=== PATIENT | male | born 1960 | race Caucasian/White ===

== ENCOUNTER 2016-10-01 15:05 | Emergency (ER) | payer OTHER ==
[~2016-10-01] VITALS: Ht 172.7 cm; Wt 72.6 kg
[~2016-10-01 15:05] MED LIST: FOLI1TAB16 PO; LEVE500T9 PO; NICO1PAT23 TD; PANT40TA4 PO; THIA100T74 PO
[2016-10-01 15:43] VITALS: BP 138/82
[2016-10-01] MEDS ORDERED: ACETAMINOPHEN ES 500 MG TABLET PO ONE (16:00)
[2016-10-01] MEDS ORDERED: ACETAMINOPHEN ES 500 MG TABLET ONE (16:04)
== END 2016-10-01 18:20 | disposition home or self-care (01) ==
LOC: ER 15:11
DX: M25.552 Pain in left hip (principal); I10 Essential (primary) hypertension; F10.10 Alcohol abuse, uncomplicated; F17.200 Nicotine dependence, unspecified, uncomplicated; Z59.0 Homelessness; W18.30XA Fall on same level, unspecified, initial encounter; Y93.89 Activity, other specified; Y92.89 Other specified places as the place of occurrence of the external cause; Y99.8 Other external cause status
CPT/HCPCS: 73503; 73552; 99284; A4606; Z7610; 73510-TC; 73550-TC

== ENCOUNTER 2016-12-24 17:20 | Emergency (ER) | payer OTHER ==
[~2016-12-24] VITALS: Ht 182.9 cm; Wt 63.5 kg
[2016-12-24 17:56] LABS: BASOPHILS % (AUTO) 0.5 % (0.0-2.0); EOSINOPHILS # (AUTO) 0.1 /CMM (0.0-0.7); EOSINOPHILS % (AUTO) 0.8 % (0.0-6.0); HEMATOCRIT 40 % (39-51); LYMPHOCYTES # (AUTO) 3.3 /CMM (0.8-4.8); LYMPHOCYTES % (AUTO) 40.7 % (20.0-44.0); MEAN CORPUSCULAR HEMOGLOBIN 32 PG (26.0-33.0); MEAN CORPUSCULAR HGB CONC 32 g/dl (31.0-36.0); MEAN CORPUSCULAR VOLUME 99 fL (80-96); MONOCYTES # (AUTO) 0.6 /CMM (0.1-1.30); NEUTROPHILS # (AUTO) 4.1 /CMM (1.8-8.9); PLATELET COUNT (AUTO) 286 /CMM (150-450); RED BLOOD CELL COUNT(AUTO) 4.07 MIL/uL (4.5-6.0); WHITE BLOOD COUNT (AUTO) 8.1 K/uL (4.3-11.0)
[2016-12-24 18:08] LABS: CALCIUM, SERUM 8.2 mg/dL (8.5-10.1); CARBON DIOXIDE 29 mmol/L (21-32); CHLORIDE 109 mmol/L (98-107); CREATININE 0.6 mg/dL (0.6-1.3); GLUCOSE 77 mg/dL (74-106); POTASSIUM 3.3 mmol/L (3.5-5.1); SODIUM SERUM 144 mmol/L (136-145); UREA NITROGEN, BLOOD 4 mg/dL (7-18)
[2016-12-24 18:24] LABS: ACETAMINOPHEN < 2 ug/ml (10-30); ALANINE AMINOTRANSFERASE 17 U/L (12-78); ALBUMIN 2.9 g/dL (3.4-5.0); ALCOHOL, BLOOD 306 mg/dL (0-0); ALKALINE PHOSPHATASE 154 U/L (46-116); ASPARTATE AMINOTRANSFERASE 23 U/L (15-37); BILIRUBIN,DIRECT 0.1 mg/dL (0.0-0.2); BILIRUBIN,TOTAL 0.3 mg/dL (0.2-1.0); SALICYLATE 3.5 mg/dL (2.8-20.0); TOTAL PROTEIN, SERUM 6.4 g/dL (6.4-8.2)
[2016-12-24] MEDS ORDERED: POTASSIUM CHLORIDE 20 MEQ TAB.PRT.SR PO ONE (20:00)
--- NOTE | 2016-12-24 21:20 | NUR ---
PT OK TO DISCHARGE PER CONSTANTIN INDUSTRIAL CHEMISTRY TEACHER. Patient discharged to home in stable condition. Pt refused ACI. Patient is awake and alert to self, day, and place. pt ambulatory with a steady gait
[2016-12-25 01:06] VITALS: BP 124/65
== END 2016-12-24 21:25 | disposition home or self-care (01) ==
LOC: ER 17:23
DX: G40.909 Epilepsy, unspecified, not intractable, without status epilepticus (principal); F10.129 Alcohol abuse with intoxication, unspecified; F17.200 Nicotine dependence, unspecified, uncomplicated; I10 Essential (primary) hypertension; Z59.0 Homelessness
CPT/HCPCS: 36415; 80048-TC; 80076-TC; 80185-TC; 85025-TC; A4606; G0480; G6039-TC; Z7610

== ENCOUNTER 2017-01-28 12:41 | Emergency (ER) | payer OTHER ==
[~2017-01-28] VITALS: Ht 177.8 cm; Wt 72.6 kg
--- NOTE | 2017-01-28 12:46 | NUR ---
[id number] [employer]: ETOH INTOXICATED. AMBULATORY WITH STEADY GAIT ON ARRIVAL. DEPRESSION. GOWNED PT . AWAITING MD ORDER.
--- NOTE | 2017-01-28 13:50 | NUR ---
DR BELCHER AT BEDSIDE FOR EVAL
[2017-01-28 14:01] LABS: BASOPHILS % (AUTO) 0.7 % (0.0-2.0); EOSINOPHILS # (AUTO) 0.1 /CMM (0.0-0.7); EOSINOPHILS % (AUTO) 2.5 % (0.0-6.0); HEMATOCRIT 42 % (39-51); LYMPHOCYTES # (AUTO) 2.8 /CMM (0.8-4.8); LYMPHOCYTES % (AUTO) 52.3 % (20.0-44.0); MEAN CORPUSCULAR HEMOGLOBIN 34 PG (26.0-33.0); MEAN CORPUSCULAR HGB CONC 33 g/dl (31.0-36.0); MEAN CORPUSCULAR VOLUME 102 fL (80-96); MONOCYTES # (AUTO) 0.4 /CMM (0.1-1.30); MONOCYTES % (AUTO) 7.5 % (2.0-12.0); PLATELET COUNT (AUTO) 220 /CMM (150-450); RDW COEFFICIENT OF VARIATION 13.7 (11.5-15.0); RED BLOOD CELL COUNT(AUTO) 4.15 MIL/uL (4.5-6.0); WHITE BLOOD COUNT (AUTO) 5.3 K/uL (4.3-11.0)
--- NOTE | 2017-01-28 14:01 | NUR ---
URINE SAMPLE COLLECTED SENT TO LAB
--- NOTE | 2017-01-28 14:01 | NUR ---
BUS ESCORT AT BEDSIDE FOR BLOOD DRAW
[2017-01-28 14:13] LABS: APPEARANCE,URINE Clear (CLEAR); BILIRUBIN,URINE SMALL (NEGATIVE); BLOOD, URINE Negative Ery/uL (NEGATIVE); COLOR,URINE Yellow (YELLOW); KETONES,URINE Trace (NEGATIVE); LEUKOCYTE ESTERASE ,URINE Negative (NEGATIVE); NITRITE, URINE Negative (NEGATIVE); PH,URINE 5.5 (5.0-8.0); PROTEIN,URINE Trace mg/dl (NEGATIVE); UGLUCOSE Negative (NEGATIVE); UROBILINOGEN,URINE 0.2 EU/dL (0.2)
[2017-01-28 14:15] LABS: CALCIUM, SERUM 8.3 mg/dL (8.5-10.1); CREATININE 0.7 mg/dL (0.6-1.3); POTASSIUM 3.6 mmol/L (3.5-5.1)
[2017-01-28 14:22] LABS: ALBUMIN 3.4 g/dL (3.4-5.0); BILIRUBIN,DIRECT 0.1 mg/dL (0.0-0.2); BILIRUBIN,TOTAL 0.3 mg/dL (0.2-1.0); SALICYLATE 3.8 mg/dL (2.8-20.0); TOTAL PROTEIN, SERUM 6.6 g/dL (6.4-8.2)
[2017-01-28 14:25] LABS: BACTERIA,URINE Rare /HPF (None Seen); RBC,URINE 0-2 /HPF (0-2); SQUAMOUS EPITHELIAL CELL,UR Rare /HPF (None Seen); WBC,URINE 0-2 /HPF (0-3)
--- NOTE | 2017-01-28 14:43 | NUR ---
CALLED TRI MCKINNEY, FOR FREDRICK SUNG, LEFT MESSAGE ON VOICEMAIL
--- NOTE | 2017-01-28 14:47 | NUR ---
RECEIVED CALL BACK FROM LUCILA MCKINNEY 30 MIN
--- NOTE | 2017-01-28 15:45 | NUR ---
SAHARA THEODORE PSYCH X [employer] WIRING TECHNICIAN AT BEDSIDE FOR EVAL
--- NOTE | 2017-01-28 16:32 | NUR ---
fax number for [facility]: [phone], face sheet, call # [phone] [place]
--- NOTE | 2017-01-28 16:38 | NUR ---
FAXED FACESHEET AND LAB RESULTS TO [facility].
--- NOTE | 2017-01-28 17:34 | NUR ---
CALLED [facility] INTAKE TO FOLLOW UP ON PLACEMENT OF PT, THEY SAID TO FAX THE DOCTORS NOTE AND THEY WILL REVIEW IT
--- NOTE | 2017-01-28 18:23 | NUR ---
CALLED [facility] TO FOLLOW UP, SPOKE WITH ERICA IN INTAKE, SHE SAID HIS ALCOHOL LEVEL IS STILL HIGH AND THEY CAN ONLY ACCEPT IF IT IS BELOW 100, WILL FOLLOW UP AGAIN LATER
--- NOTE | 2017-01-28 18:44 | NUR ---
REFAXED PT RESULTS TO [facility],
[2017-01-28 18:46] VITALS: BP 113/85
--- NOTE | 2017-01-28 19:05 | NUR ---
PT ACCEPTED TO [facility], PLEASE GIVE REPORT TO NURSE AT [phone], ACCEPTED BY
--- NOTE | 2017-01-28 19:09 | NUR ---
CALLED [facility] FOR TRANSPORT TO [facility], ETA 1 HOUR
--- NOTE | 2017-01-28 19:12 | NUR ---
GAVE REPORT TO CLINT LEÓN AT [facility]. ACCEPTED PT UNDER DR MILLIGAN.
== END 2017-01-28 20:21 ==
LOC: ER 12:43
DX: F10.129 Alcohol abuse with intoxication, unspecified (principal); R45.851 Suicidal ideations; G40.909 Epilepsy, unspecified, not intractable, without status epilepticus; F17.200 Nicotine dependence, unspecified, uncomplicated; I10 Essential (primary) hypertension; Z59.0 Homelessness
CPT/HCPCS: 36415; 80048; 80076; 80305; 80329; 81001; 85025; 99285; A4606; G0480 ×3; Z7610; 81000-TC

== ENCOUNTER 2017-04-01 17:39 | Emergency (ER) | payer OTHER ==
[~2017-04-01] VITALS: Ht 182.9 cm; Wt 79.4 kg
--- NOTE | 2017-04-01 17:48 | NUR ---
ETOH INTOXICATED. AGGRESSIVE TOWARD FAMILY WHILE INTOXICATED. SI PLAN TO JUMP OFF BRIDGE
[2017-04-01 17:55] LABS: BASOPHILS # (AUTO) 0.1 /CMM (0.0-0.2); BASOPHILS % (AUTO) 0.9 % (0.0-2.0); EOSINOPHILS # (AUTO) 0.1 /CMM (0.0-0.7); EOSINOPHILS % (AUTO) 0.6 % (0.0-6.0); HEMATOCRIT 41 % (39-51); HEMOGLOBIN 13.5 g/dL (13.5-17.5); LYMPHOCYTES # (AUTO) 3.5 /CMM (0.8-4.8); LYMPHOCYTES % (AUTO) 37.8 % (20.0-44.0); MEAN CORPUSCULAR HEMOGLOBIN 35 PG (26.0-33.0); MEAN CORPUSCULAR HGB CONC 33 g/dl (31.0-36.0); MEAN CORPUSCULAR VOLUME 106 fL (80-96); MONOCYTES % (AUTO) 10.4 % (2.0-12.0); NEUTROPHILS # (AUTO) 4.5 /CMM (1.8-8.9); NEUTROPHILS % (AUTO) 50.3 % (43.0-81.0); PLATELET COUNT (AUTO) 211 /CMM (150-450); RDW COEFFICIENT OF VARIATION 13.5 (11.5-15.0); RED BLOOD CELL COUNT(AUTO) 3.86 MIL/uL (4.5-6.0); WHITE BLOOD COUNT (AUTO) 9.2 K/uL (4.3-11.0)
[2017-04-01 18:03] LABS: CALCIUM, SERUM 8.4 mg/dL (8.5-10.1); CREATININE 0.7 mg/dL (0.6-1.3)
--- NOTE | 2017-04-01 18:14 | NUR ---
PT TAKEN TO CT SCAN
--- NOTE | 2017-04-01 18:44 | NUR ---
URINE SAMPLE COLLECTED SENT TO LAB
[2017-04-01] MEDS ORDERED: QUET25TA PO (18:50)
[2017-04-01] MEDS ORDERED: PHEN100C4 PO (18:50)
[2017-04-01] MEDS ORDERED: LEVE250T2 PO (18:50)
[2017-04-01] MEDS ORDERED: FOLIC ACID 1 MG TABLET PO ONE (19:00)
[2017-04-01] MEDS ORDERED: THIAMINE HCL 100 MG TABLET PO ONE (19:00)
[2017-04-01] MEDS ORDERED: POTASSIUM CHLORIDE 20 MEQ TAB.PRT.SR PO ONE ×2 (19:00→19:08)
[2017-04-01] MEDS ORDERED: FOLIC ACID 1 MG TABLET ONE (19:08)
[2017-04-01] MEDS ORDERED: THIAMINE HCL 100 MG TABLET ONE (19:08)
--- NOTE | 2017-04-01 20:12 | NUR ---
PSYCH HEALTH AND WELLNESS SALES CONSULTANT AT BEDSIDE
[2017-04-01 22:17] VITALS: BP 133/87
--- NOTE | 2017-04-01 22:27 | NUR ---
GIVEN REPORT TO MARJAN AT [facility]. DR SALAZAR ADMITTING DX MAJOR DEPRESSION.
== END 2017-04-01 22:29 ==
LOC: ER 17:40
DX: F10.129 Alcohol abuse with intoxication, unspecified (principal); G40.909 Epilepsy, unspecified, not intractable, without status epilepticus; R41.82 Altered mental status, unspecified; R45.851 Suicidal ideations; Z59.0 Homelessness; F17.200 Nicotine dependence, unspecified, uncomplicated
CPT/HCPCS: 36415; 70450; 80048; 80185; 80305; 85025; 99285; A4606; G0480; Z7610

== ENCOUNTER 2017-04-17 18:50 | Emergency (ER) | payer OTHER ==
[~2017-04-17] VITALS: Ht 177.8 cm; Wt 83.9 kg
[~2017-04-17 18:50] MED LIST changes: -FOLI1TAB16 PO; +LEVE250T2 PO; -LEVE500T9 PO; -NICO1PAT23 TD; -PANT40TA4 PO; +PHEN100C4 PO; +QUET25TA PO; -THIA100T74 PO
--- NOTE | 2017-04-17 18:59 | NUR ---
PT BIBRA FROM THE STREETS TO ER BED 15. HERE FOR ETOH. FOUND IN A SIDEWALK. ADMITS TO ETOH.PT VERBALLY RESPONSIVE. STABLE VITALS. AWAITING MD SUNG.
--- NOTE | 2017-04-17 19:00 | NUR ---
PT TO RADIOLOGY FOR HEAD CT SCAN VIA [facility].
--- NOTE | 2017-04-17 19:15 | NUR ---
DR BOLAÑOS AT BEDSIDE FOR EVAL.
[2017-04-17] MEDS ORDERED: PHENYTOIN EXTENDED RELEASE 100 MG CAPSULE PO ONE ×2 (23:30→23:31)
--- NOTE | 2017-04-17 23:34 | NUR ---
PT IS NOW AWAKE. STATES HE HAS SEIZURE AND TAKES MEDICATION. DR FRIEND MADE AWARE. MEDICATED ORDERED.
[2017-04-18 01:16] VITALS: BP 117/81
--- NOTE | 2017-04-18 01:17 | NUR ---
Patient discharged to home in stable condition. Written and verbal after care instructions given. Patient verbalizes understanding of instruction. Pt ambulatory with a steady gait. VSS, NAD noted on DC. Denies complaint on DC.
== END 2017-04-18 01:18 | disposition home or self-care (01) ==
LOC: ER 18:51
DX: F10.129 Alcohol abuse with intoxication, unspecified (principal); R41.82 Altered mental status, unspecified; I10 Essential (primary) hypertension; F17.200 Nicotine dependence, unspecified, uncomplicated
CPT/HCPCS: 70450; 99284; A4606; Z7610

== ENCOUNTER 2018-03-03 14:14 | Emergency (ER) | payer OTHER ==
[~2018-03-03] VITALS: Ht 167.6 cm; Wt 69.5 kg
--- NOTE | 2018-03-03 14:16 | NUR ---
PT AMA FROM THE STREETS TO ER BED 06. PT IS AWAKE ADMITS TO BEEN DRINKING AND STATES HAD MULTIPLE SEIZURE SINCE HIS BAG CONTAINING HIS MEDS WAS STOLEN. PLACED ON SEIZURE PRECAUTION. VSS. AWAITING MD SUNG.
--- NOTE | 2018-03-03 15:44 | NUR ---
RAMON VIDEO GAME PROGRAMMER AT BEDSIDE FOR EVAL.
[2018-03-03] MEDS ORDERED: LORAZEPAM INJ 2 MG/ML VIAL IVP ONE (16:00)
[2018-03-03] MEDS ORDERED: IV NS 0.9% 1,000 ML BAG IV ONE (16:00)
--- NOTE | 2018-03-03 16:00 | NUR ---
IV LINE STARTED BLOOD DRAWN AND SENT TO LAB.
[2018-03-03 16:05] LABS: BASOPHILS % (AUTO) 0.9 % (0.0-2.0); HEMATOCRIT 42 % (39-51); HEMOGLOBIN 14.2 g/dL (13.5-17.5); LYMPHOCYTES # (AUTO) 1.9 /CMM (0.8-4.8); MEAN CORPUSCULAR HEMOGLOBIN 36 PG (26.0-33.0); MEAN CORPUSCULAR HGB CONC 34 g/dl (31.0-36.0); MEAN CORPUSCULAR VOLUME 107 fL (80-96); MONOCYTES # (AUTO) 0.4 /CMM (0.1-1.30); MONOCYTES % (AUTO) 8.6 % (2.0-12.0); NEUTROPHILS # (AUTO) 2.3 /CMM (1.8-8.9); NEUTROPHILS % (AUTO) 49.5 % (43.0-81.0); PLATELET COUNT (AUTO) 145 /CMM (150-450); RDW COEFFICIENT OF VARIATION 13.6 (11.5-15.0); RED BLOOD CELL COUNT(AUTO) 3.96 MIL/uL (4.5-6.0); WHITE BLOOD COUNT (AUTO) 4.6 K/uL (4.3-11.0)
[2018-03-03 16:15] LABS: CALCIUM, SERUM 8.4 mg/dL (8.5-10.1); CARBON DIOXIDE 29 mmol/L (21-32); CHLORIDE 105 mmol/L (98-107); CREATININE 0.7 mg/dL (0.6-1.3); GLUCOSE 100 mg/dL (74-106); POTASSIUM 3.7 mmol/L (3.5-5.1); SODIUM SERUM 140 mmol/L (136-145); UREA NITROGEN, BLOOD 5 mg/dL (7-18)
[2018-03-03 16:18] LABS: INR 0.93 (0.85-1.15)
[2018-03-03] MEDS ORDERED: LORAZEPAM INJ 2 MG/ML VIAL ONE (16:22)
[2018-03-03 16:23] LABS: ALANINE AMINOTRANSFERASE 97 U/L (12-78); ALBUMIN 3.3 g/dL (3.4-5.0); ALCOHOL, BLOOD 335 mg/dL (0-0); ALKALINE PHOSPHATASE 125 U/L (46-116); ASPARTATE AMINOTRANSFERASE 176 U/L (15-37); BILIRUBIN,DIRECT 0.3 mg/dL (0.0-0.2); BILIRUBIN,TOTAL 0.7 mg/dL (0.2-1.0); TOTAL PROTEIN, SERUM 6.7 g/dL (6.4-8.2)
[2018-03-03 17:01] LABS: PHENYTOIN (DILANTIN) < 0.5 ug/ml (10.0-20.0)
[2018-03-03] MEDS ORDERED: PHENYTOIN SODIUM IV 1,000 MG in IV NS 0.9% 100 ML IV ONE (17:30)
--- NOTE | 2018-03-03 21:07 | NUR ---
PT AWAKE. AAOX3. SATES READY TO GO HOME. PROVIDED W/ BUS TOKEN. IVHL D/C'D. D/C HOME IN STABLE CONDITION.
[2018-03-03 21:11] VITALS: BP 125/77
== END 2018-03-03 21:11 | disposition home or self-care (01) ==
LOC: ER 14:15
DX: S40.811A Abrasion of right upper arm, initial encounter (principal); S40.812A Abrasion of left upper arm, initial encounter; F10.129 Alcohol abuse with intoxication, unspecified; G40.909 Epilepsy, unspecified, not intractable, without status epilepticus; R74.0 Nonspecific elevation of levels of transaminase and lactic acid dehydrogenase [LDH]; I10 Essential (primary) hypertension; F17.200 Nicotine dependence, unspecified, uncomplicated; Z59.0 Homelessness; Z76.0 Encounter for issue of repeat prescription; Y90.8 Blood alcohol level of 240 mg/100 ml or more; W22.8XXA Striking against or struck by other objects, initial encounter; Y93.89 Activity, other specified; Y92.89 Other specified places as the place of occurrence of the external cause; Y99.8 Other external cause status
CPT/HCPCS: 36415; 80048; 80076; 80185; 85025; 85730; 96365; 96375; 99284; A4606; G0480; J1165; J2060; J7030; J7040; Z7610

== ENCOUNTER 2019-02-04 17:35 | Emergency (ER) | payer MEDICAID, OTHER ==
[~2019-02-04] VITALS: Ht 172.7 cm; Wt 68.0 kg
--- NOTE | 2019-02-04 18:37 | NUR ---
PT REC'D TO ER ETOH LABS DRAWN SEN TO LAB UA SENT TO LAB PT EATTING AWAITING EVALUATION BY ER PROVIDER.
--- NOTE | 2019-02-04 19:08 | NUR ---
PT SITTING UP EATING DINNER
--- NOTE | 2019-02-04 21:22 | NUR ---
Patient discharged to home in stable condition. Written and verbal after care instructions given. Patient verbalizes understanding of instruction. Pt ambulatory with a steady gait
[2019-02-04 21:24] VITALS: BP 123/85
== END 2019-02-04 21:25 | disposition home or self-care (01) ==
LOC: ER 17:40
DX: F10.229 Alcohol dependence with intoxication, unspecified (principal); G40.909 Epilepsy, unspecified, not intractable, without status epilepticus; I10 Essential (primary) hypertension; F19.10 Other psychoactive substance abuse, uncomplicated; F17.200 Nicotine dependence, unspecified, uncomplicated; Y90.9 Presence of alcohol in blood, level not specified; Z59.0 Homelessness

== ENCOUNTER 2019-04-11 18:34 | Emergency (ER) | payer OTHER ==
[2019-04-11] MEDS ORDERED: LORAZEPAM INJ 2 MG/ML VIAL IVP ONE (19:00)
[2019-04-11] MEDS ORDERED: ONDANSETRON HCL/PF 4 MG/2 ML VIAL IVP ONE (19:00)
[2019-04-11] MEDS ORDERED: LEVETIRACETAM (500MG) 500 MG in IV NS 0.9% 100 ML IV ONE (19:00)
[2019-04-11] MEDS ORDERED: IV NS 0.9% 1,000 ML BAG IV ONE (19:00)
[2019-04-11] MEDS ORDERED: ONDANSETRON HCL/PF 4 MG/2 ML VIAL ONE (19:18)
[2019-04-11] MEDS ORDERED: LORAZEPAM INJ 2 MG/ML VIAL ONE (19:19)
[2019-04-11] MEDS ORDERED: LEVETIRACETAM (500MG) 500 MG/5 ML VIAL IV ONE (19:55)
[2019-04-12] MEDS ORDERED: LEVETIRACETAM (250 MG) 250 MG TABLET PO ONE (04:28)
[2019-04-12] MEDS ORDERED: PHENYTOIN EXTENDED RELEASE 100 MG CAPSULE PO ONE ×2 (04:28→04:30)
== END 2019-04-12 06:07 | disposition home or self-care (01) ==
DX: G40.909 Epilepsy, unspecified, not intractable, without status epilepticus (principal); F10.20 Alcohol dependence, uncomplicated; I10 Essential (primary) hypertension; F19.10 Other psychoactive substance abuse, uncomplicated; F17.200 Nicotine dependence, unspecified, uncomplicated; R74.8 Abnormal levels of other serum enzymes; Y90.8 Blood alcohol level of 240 mg/100 ml or more; Z59.0 Homelessness; Z91.19 Patient's noncompliance with other medical treatment and regimen
CPT/HCPCS: 36415; 70450; 72125; 80048; 80076; 80185; 80307; 85025; 85730; 93005; 96365; 96375; 99284; J1953; J2060; J2405; J7030 ×2

== ENCOUNTER 2019-04-15 20:17 | Emergency (ER) | payer OTHER ==
[~2019-04-15] VITALS: Ht 177.8 cm; Wt 61.2 kg
--- NOTE | 2019-04-15 20:27 | NUR ---
BIBA FOR C/O HEAD AND R SHOULDER PAIN. S/P UNWITHNESSED SEIZURE PER PT?? HEAVY ETOH SMELL. PT WAS PLACED ON A MONITOR . VS OBTAINED .WILL CONT TO MONITOR
[2019-04-15 21:05] LABS: BASOPHILS # (AUTO) 0.1 /CMM (0.0-0.2); BASOPHILS % (AUTO) 1.4 % (0.0-2.0); EOSINOPHILS % (AUTO) 0.8 % (0.0-6.0); HEMATOCRIT 41 % (39-51); HEMOGLOBIN 13.3 g/dL (13.5-17.5); LYMPHOCYTES # (AUTO) 3.3 /CMM (0.8-4.8); LYMPHOCYTES % (AUTO) 42.3 % (20.0-44.0); MEAN CORPUSCULAR HGB CONC 32 g/dl (31.0-36.0); MEAN CORPUSCULAR VOLUME 108 fL (80-96); MONOCYTES # (AUTO) 0.5 /CMM (0.1-1.30); MONOCYTES % (AUTO) 6.2 % (2.0-12.0); NEUTROPHILS # (AUTO) 3.8 /CMM (1.8-8.9); NEUTROPHILS % (AUTO) 49.3 % (43.0-81.0); PLATELET COUNT (AUTO) 473 /CMM (150-450); RED BLOOD CELL COUNT(AUTO) 3.82 MIL/uL (4.5-6.0); WHITE BLOOD COUNT (AUTO) 7.8 K/uL (4.3-11.0)
[2019-04-15 21:11] LABS: CALCIUM, SERUM 8.7 mg/dL (8.5-10.1); CREATININE 0.6 mg/dL (0.6-1.3); POTASSIUM 3.8 mmol/L (3.5-5.1)
[2019-04-15 21:18] LABS: ALBUMIN 2.9 g/dL (3.4-5.0); BILIRUBIN,DIRECT 0.2 mg/dL (0.0-0.2); BILIRUBIN,TOTAL 0.4 mg/dL (0.2-1.0); TOTAL PROTEIN, SERUM 6.7 g/dL (6.4-8.2)
[2019-04-15 21:28] LABS: PHENYTOIN (DILANTIN) 1.4 ug/ml (10.0-20.0)
[2019-04-15] MEDS ORDERED: phenytoin SODIUM IV 250 MG/5 ML VIAL IV ONE (21:55)
--- NOTE | 2019-04-15 21:55 | NUR ---
A 20G PIV LINE WAS STABLISHED ON LAC ON 1ST ATTEMPT W/ GOOD BLOOD DRAW.
[2019-04-15] MEDS ORDERED: PHENYTOIN SODIUM IV ONE (22:00)
[2019-04-15] MEDS ORDERED: NS 0.9% IV ONE (22:00)
[2019-04-15 22:41] LABS: MAGNESIUM 1.9 mg/dL (1.8-2.4)
[2019-04-15 22:44] LABS: EOSINOPHILS % (MANUAL) 1 % (0-4); LYMPHOCYTES % (MANUAL) 40 % (16-48); MONOCYTES % (MANUAL) 4 % (0-11.0); NEUTROPHILS % (MANUAL) 55 (42-76)
--- NOTE | 2019-04-16 01:39 | NUR ---
PT ACCEPTED TO [facility] MD: DR. MCCARTHY NUMBER FOR REPORT: [phone] BED ASSIGNMENT: [id number]
--- NOTE | 2019-04-16 01:45 | NUR ---
CALLED [facility] FOR TRANSPORTATION. ETA 0215. TRIP NUMBER [id number]
[2019-04-16 02:05] VITALS: BP 120/74
--- NOTE | 2019-04-16 02:05 | NUR ---
GAVE REPORT TO AJ LEÓN FROM [facility] FOR VANDANA
--- NOTE | 2019-04-16 02:08 | NUR ---
GAVE REPORT TO DONNIE Brizuela FOR TRANSPORTATION VANDANA
== END 2019-04-16 02:11 | disposition short-term general hospital (02) ==
LOC: ER 20:19
DX: S42.291A Other displaced fracture of upper end of right humerus, initial encounter for closed fracture (principal); S43.004A Unspecified dislocation of right shoulder joint, initial encounter; G40.909 Epilepsy, unspecified, not intractable, without status epilepticus; F10.129 Alcohol abuse with intoxication, unspecified; I10 Essential (primary) hypertension; F17.200 Nicotine dependence, unspecified, uncomplicated; Z59.0 Homelessness; Z79.899 Other long term (current) drug therapy; W19.XXXA Unspecified fall, initial encounter; Y93.89 Activity, other specified; Y92.89 Other specified places as the place of occurrence of the external cause; Y99.8 Other external cause status; Y90.9 Presence of alcohol in blood, level not specified
CPT/HCPCS: 36415; 71045; 73030; 73080; 80048; 80076; 80185; 80307; 83735; 84484; 85025; 93005; 96365; 99285; J1165 ×2; J7030; G0480

== ENCOUNTER 2019-04-27 19:22 | Emergency (ER) | payer OTHER ==
[~2019-04-27] VITALS: Ht 177.8 cm; Wt 72.6 kg
--- NOTE | 2019-04-27 19:45 | NUR ---
BIBRA. C/O "HX OF SEIZURES. HAVENT HAD MY MEDICINE FOR SEIZURES IN A WHILE AND IM NOT FEELING RIGHT" -SOB NOTED. VSS AT THIS TIME
[2019-04-27] MEDS ORDERED: IV NS 0.9% 500 ML BAG IV ONE (20:00)
--- NOTE | 2019-04-27 20:12 | NUR ---
BLOOD DRAWN AND GIVEN TO LAB
[2019-04-27] MEDS ORDERED: LEVETIRACETAM (500MG) 500 MG/5 ML VIAL IV ONE (20:19)
[2019-04-27] MEDS ORDERED: LEVETIRACETAM (500MG) 1,000 MG in IV NS 0.9% 100 ML IV SCH (20:30)
[2019-04-27] MEDS ORDERED: phenytoin SODIUM IV 1,000 MG in IV NS 0.9% 100 ML IV ONE (21:00)
[2019-04-27] MEDS ORDERED: phenytoin SODIUM IV 250 MG/5 ML VIAL IV ONE (21:49)
[2019-04-28 06:14] VITALS: BP 112/77
== END 2019-04-28 06:15 | disposition home or self-care (01) ==
LOC: ER 19:22
DX: S50.311A Abrasion of right elbow, initial encounter (principal); S80.211A Abrasion, right knee, initial encounter; T51.91XA Toxic effect of unspecified alcohol, accidental (unintentional), initial encounter; G40.909 Epilepsy, unspecified, not intractable, without status epilepticus; I10 Essential (primary) hypertension; F19.10 Other psychoactive substance abuse, uncomplicated; F10.20 Alcohol dependence, uncomplicated; F17.200 Nicotine dependence, unspecified, uncomplicated; Y90.8 Blood alcohol level of 240 mg/100 ml or more; Z59.0 Homelessness; Z91.14 Patient's other noncompliance with medication regimen; W18.39XA Other fall on same level, initial encounter; Y93.89 Activity, other specified; Y92.89 Other specified places as the place of occurrence of the external cause; Y99.8 Other external cause status
CPT/HCPCS: 36415; 70450; 71045; 73060; 73090; 80185; 80307; 96365; 96367; 99284; J1165 ×2; J1953 ×2; J7030 ×4; J7040; G0480

== ENCOUNTER 2019-05-06 19:37 | Emergency (ER) | payer OTHER ==
[~2019-05-06] VITALS: Ht 167.6 cm; Wt 68.0 kg
--- NOTE | 2019-05-06 19:45 | NUR ---
TO BED 13 BIB EMS C/O ETOH. PT FOUND IN THE NEAR BY PARK WHEN BY STANDER CALLED 911 DUE TO PT IS A INTOXICATED WITH UNSTEADY GAIT. PT DENIES FALL OR ANY TRAUMA. PT AAOX4 NO ACUTE DISTRESS NOTED, RESP EVEN AND UNLABORED. PT CONSTANTLY SAYING "I WANT SOME FOOD AND I JUST NEED TO SLEEP". PLACE PT ON CARDIAC MONITORING, CONTINUOUS POX. PENDING ER MD SUNG. CALL LIGHT WITHIN REACH.
--- NOTE | 2019-05-06 21:13 | NUR ---
PT ASLEEP, SHANAE CUTE DISTRESS NOTED, RESP EVEN AND UNALBORED. CALL LIGHT WITHIN REACH. WILL CONTINUE TO MONITOR PT.
--- NOTE | 2019-05-06 23:02 | NUR ---
PT ASLEEP, SHANAE CUTE DISTRESS NOTED, RESP EVEN AND UNALBORED. CALL LIGHT WITHIN REACH. WILL CONTINUE TO MONITOR PT.
--- NOTE | 2019-05-07 01:17 | NUR ---
PT AMBULATORY WITH STEADY GAIT NOTED.
--- NOTE | 2019-05-07 03:28 | NUR ---
PT AAOX4 NO ACUTE DISTRESS NOTED, RESP EVEN AND UNALBORED. CALL LIGHT WITHIN REACH
--- NOTE | 2019-05-07 05:37 | NUR ---
Melissa dubose in ED - 05/07/19 at 0539 by KO PT ASLEEP, SHANAE CUTE DISTRESS NOTED, RESP EVEN AND UNALBORED. CALL LIGHT WITHIN REACH. WILL CONTINUE TO MONITOR PT.
--- NOTE | 2019-05-07 05:50 | NUR ---
Pt ok to discahrge per dr Duncan. Patient given written and verbal discharge instructions. Patient verbalizes understanding of instructions. Patient is ambulatory with steady gait. Refuses offer of alf placement. Patient given list of available shelters in surrounding area.Patient is awake and alert to self, day, and place. pt ambulatory with a steady gait
[2019-05-07 05:51] VITALS: BP 125/71
== END 2019-05-07 05:51 | disposition home or self-care (01) ==
LOC: ER 19:41
DX: F10.229 Alcohol dependence with intoxication, unspecified (principal); R56.9 Unspecified convulsions; I10 Essential (primary) hypertension; F19.10 Other psychoactive substance abuse, uncomplicated; F17.200 Nicotine dependence, unspecified, uncomplicated; Y90.9 Presence of alcohol in blood, level not specified; Z59.0 Homelessness

== ENCOUNTER 2019-05-10 13:39 | Emergency (ER) | payer OTHER ==
[~2019-05-10] VITALS: Ht 165.1 cm; Wt 63.5 kg
--- NOTE | 2019-05-10 13:46 | NUR ---
"FLORIAN RA [facility] from [facility]thalmology clinic"(trying to have glasses fixed) and had sezure tonic/clonic. Given versed 5mg IM. BS 126 +ETOH abuse" pt alert awake, pt on monitor, vss, nad noted, pending md short
[2019-05-10] MEDS ORDERED: IV NS 0.9% 1,000 ML BAG IV ONE (14:00)
[2019-05-10 14:22] LABS: BASOPHILS # (AUTO) 0.1 /CMM (0.0-0.2); BASOPHILS % (AUTO) 0.5 % (0.0-2.0); EOSINOPHILS % (AUTO) 0.1 % (0.0-6.0); HEMATOCRIT 45 % (39-51); HEMOGLOBIN 14.8 g/dL (13.5-17.5); LYMPHOCYTES # (AUTO) 0.8 /CMM (0.8-4.8); LYMPHOCYTES % (AUTO) 8.7 % (20.0-44.0); MEAN CORPUSCULAR HGB CONC 33 g/dl (31.0-36.0); MEAN CORPUSCULAR VOLUME 105 fL (80-96); MONOCYTES # (AUTO) 0.8 /CMM (0.1-1.30); MONOCYTES % (AUTO) 8.2 % (2.0-12.0); NEUTROPHILS % (AUTO) 82.5 % (43.0-81.0); PLATELET COUNT (AUTO) 167 /CMM (150-450); RED BLOOD CELL COUNT(AUTO) 4.25 MIL/uL (4.5-6.0); WHITE BLOOD COUNT (AUTO) 9.7 K/uL (4.3-11.0)
[2019-05-10 14:30] LABS: CALCIUM, SERUM 9.1 mg/dL (8.5-10.1); CARBON DIOXIDE 23 mmol/L (21-32); CHLORIDE 102 mmol/L (98-107); CREATININE 1.1 mg/dL (0.6-1.3); GLUCOSE 163 mg/dL (74-106); POTASSIUM 3.7 mmol/L (3.5-5.1); SODIUM SERUM 142 mmol/L (136-145); UREA NITROGEN, BLOOD 5 mg/dL (7-18)
[2019-05-10 14:36] LABS: ALANINE AMINOTRANSFERASE 21 U/L (12-78); ALBUMIN 3.2 g/dL (3.4-5.0); ALCOHOL, BLOOD < 3 mg/dL (0-0); ALKALINE PHOSPHATASE 233 U/L (46-116); ASPARTATE AMINOTRANSFERASE 33 U/L (15-37); BILIRUBIN,DIRECT 0.3 mg/dL (0.0-0.2); BILIRUBIN,TOTAL 0.7 mg/dL (0.2-1.0); TOTAL PROTEIN, SERUM 7.1 g/dL (6.4-8.2)
[2019-05-10] MEDS ORDERED: THIAMINE HCL 100 MG TABLET PO ONE (15:00)
--- NOTE | 2019-05-10 15:30 | NUR ---
pt provided with meal tray.
[2019-05-10] MEDS ORDERED: THIAMINE HCL 100 MG TABLET ONE (15:37)
[2019-05-10] MEDS ORDERED: phenytoin SODIUM IV 1,000 MG in IV NS 0.9% 100 ML IV ONE (16:00)
[2019-05-10] MEDS ORDERED: LEVETIRACETAM (250 MG) 250 MG TABLET PO ONE ×2 (16:30→16:37)
[2019-05-10 18:55] VITALS: BP 132/74
--- NOTE | 2019-05-10 18:55 | NUR ---
Patient discharged to home in stable condition. Written and verbal after care instructions given. Patient verbalizes understanding of instruction. IV removed. Catheter intact and site benign. Pressure and 4x4 applied to site. No bleeding noted.
== END 2019-05-10 18:55 | disposition home or self-care (01) ==
LOC: ER 13:40
DX: R56.9 Unspecified convulsions (principal); F10.20 Alcohol dependence, uncomplicated; I10 Essential (primary) hypertension; F19.10 Other psychoactive substance abuse, uncomplicated; F17.200 Nicotine dependence, unspecified, uncomplicated; Y90.0 Blood alcohol level of less than 20 mg/100 ml; Z59.0 Homelessness
CPT/HCPCS: 36415; 80048; 80076; 80185; 80307; 85025; 96365; 99283; J1165; J7030 ×2; J7040; G0480

== ENCOUNTER 2019-06-23 18:40 | Emergency (ER) | payer OTHER ==
[~2019-06-23] VITALS: Ht 182.9 cm; Wt 70.8 kg
--- NOTE | 2019-06-23 19:20 | NUR ---
AMA FROM HOME TO ER BED 15. INTOXICATED, SMELLS OF ALCOHOL. NO RESP DISTRESS NOTED. PER REPORT, PT WAS CALLED IN BY HIS FATHER BECAUSE PT IS INTOXICATED. AT THE TIME OF ASSESSMENT, PT HAS NO MEDICAL COMPLAINT. MD AT BEDSIDE FOR EVAL. AWAITING ORDERS
[2019-06-23] MEDS ORDERED: PHENYTOIN EXTENDED RELEASE 100 MG CAPSULE PO ONE ×2 (20:00→21:16)
--- NOTE | 2019-06-23 22:30 | NUR ---
Patient discharged to home in stable condition. Written and verbal after care instructions given. Patient verbalizes understanding of instruction. Pt ambulatory with a steady gait. Pt urinated himself, offered clothing but pt refused. according to pt he will change when he gets home
[2019-06-24 00:19] VITALS: BP 149/95
== END 2019-06-23 22:30 | disposition home or self-care (01) ==
LOC: ER 18:43
DX: F10.129 Alcohol abuse with intoxication, unspecified (principal); G40.909 Epilepsy, unspecified, not intractable, without status epilepticus; I10 Essential (primary) hypertension; F17.200 Nicotine dependence, unspecified, uncomplicated; Z59.0 Homelessness; Z79.899 Other long term (current) drug therapy; Y90.9 Presence of alcohol in blood, level not specified

== ENCOUNTER 2019-06-25 19:17 | Emergency (ER) | payer OTHER ==
[~2019-06-25] VITALS: Ht 182.9 cm; Wt 70.8 kg
--- NOTE | 2019-06-25 19:30 | NUR ---
PT TO ER BB RA. PT ANSWERING QUESTIONS APPROPRIATELY BUT DOES ADMIT TO DRINKING ALCOHOL BIOFUELS PRODUCTION TECHNICIAN. NO IMMEDIATE SIGNS OF DISTRESS NOTED. PT VITAL SIGNS STABLE. NO SIGNS OF TRAUMA NOTED. PT TO ER BED, CHANGED INTO GOWN AND CONNECTED TO MONITOR. WILL CONT TO MONITOR PT.
[2019-06-25 20:37] LABS: BASOPHILS # (AUTO) 0.1 /CMM (0.0-0.2); BASOPHILS % (AUTO) 1.3 % (0.0-2.0); EOSINOPHILS % (AUTO) 0.6 % (0.0-6.0); HEMATOCRIT 47 % (39-51); HEMOGLOBIN 15.5 g/dL (13.5-17.5); LYMPHOCYTES # (AUTO) 2.7 /CMM (0.8-4.8); LYMPHOCYTES % (AUTO) 44.3 % (20.0-44.0); MEAN CORPUSCULAR HGB CONC 33 g/dl (31.0-36.0); MEAN CORPUSCULAR VOLUME 105 fL (80-96); MONOCYTES # (AUTO) 0.5 /CMM (0.1-1.30); MONOCYTES % (AUTO) 8.6 % (2.0-12.0); NEUTROPHILS # (AUTO) 2.7 /CMM (1.8-8.9); NEUTROPHILS % (AUTO) 45.2 % (43.0-81.0); PLATELET COUNT (AUTO) 189 /CMM (150-450); RED BLOOD CELL COUNT(AUTO) 4.42 MIL/uL (4.5-6.0); WHITE BLOOD COUNT (AUTO) 6.1 K/uL (4.3-11.0)
[2019-06-25 20:47] LABS: CREATININE 0.6 mg/dL (0.6-1.3); POTASSIUM 4.1 mmol/L (3.5-5.1)
[2019-06-25 20:54] LABS: PHENYTOIN (DILANTIN) 1.8 ug/ml (10.0-20.0)
[2019-06-25 20:55] LABS: ALBUMIN 3.2 g/dL (3.4-5.0); BILIRUBIN,TOTAL 0.3 mg/dL (0.2-1.0); TOTAL PROTEIN, SERUM 7.2 g/dL (6.4-8.2)
[2019-06-25] MEDS ORDERED: LEVETIRACETAM (500MG) 500 MG in IV NS 0.9% 100 ML IV SCH (21:30)
[2019-06-25] MEDS: IV NS 0.9% 500 ML BAG IV ONE ×2 (21:30→23:30)
[2019-06-25] MEDS ORDERED: PHENYTOIN SODIUM IV ONE (21:30)
[2019-06-25] MEDS ORDERED: NS 0.9% IV ONE (21:30)
[2019-06-25] MEDS ORDERED: LEVETIRACETAM (250 MG) 250 MG TABLET PO ONE ×2 (23:00→23:23)
[2019-06-25] MEDS ORDERED: PHENYTOIN EXTENDED RELEASE 100 MG CAPSULE PO ONE ×5 (23:00→23:31)
--- NOTE | 2019-06-25 23:40 | NUR ---
100MG DILANTIN WAS NOT IN THE ER PYXIS. MEDICATION OBTAINED BY THE NURSING PRODUCT GRADER.
--- NOTE | 2019-06-25 23:43 | NUR ---
PT REC'D MEDICATION ORDERED.
--- NOTE | 2019-06-26 02:21 | NUR ---
PT SLEEPIING IN [facility]. NO SIGNS OF DISTRESS NOTED. PT VITAL SIGNS STABLE. PT EASILY AROUSABLE. WILL CONT TO MONITOR PT.
--- NOTE | 2019-06-26 06:02 | NUR ---
Pt ok to discharge per Dr Duncan. Patient is awake and alert to self, day, and place. pt ambulatory with a steady gait. Patient discharged to home in stable condition. Written and verbal after care instructions given. Patient verbalizes understanding of instruction.
--- NOTE | 2019-06-26 06:05 | NUR ---
Pt refused to sign homeless waiver.
[2019-06-26 06:58] VITALS: BP 134/78
== END 2019-06-26 06:59 | disposition home or self-care (01) ==
LOC: ER 19:18
DX: F10.129 Alcohol abuse with intoxication, unspecified (principal); G40.909 Epilepsy, unspecified, not intractable, without status epilepticus; I10 Essential (primary) hypertension; F19.10 Other psychoactive substance abuse, uncomplicated; F17.200 Nicotine dependence, unspecified, uncomplicated; Y90.8 Blood alcohol level of 240 mg/100 ml or more; Z59.0 Homelessness; Z79.899 Other long term (current) drug therapy
CPT/HCPCS: 80053; 80177; 80185; 80307; 85025; 99284; J1165; J1953; J7030 ×2; J7040; 36415; G0480

== ENCOUNTER 2019-07-02 13:47 | Emergency (ER) | payer OTHER ==
[~2019-07-02] VITALS: Ht 182.9 cm; Wt 59.0 kg
--- NOTE | 2019-07-02 14:02 | NUR ---
patient [id number] from the street, "i had a pint of vodka", picked up by ems outside the library. Connected to the monitor and pulse ox. Breathing evenly and unlabored. Sitter at bedside for constant monitoring. Kept comfortable, will continue to monitor accordingly. Patient verbally responsive and able to make needs known.
--- NOTE | 2019-07-02 14:15 | NUR ---
WELDER GAS AUTOMATIC MOHSEN AT BEDSIDE
--- NOTE | 2019-07-02 14:30 | NUR ---
Social service consult requested by FAY Nguyen for ETOH. Pt. is a 59 year old male who was brought in by rescue from street where he was lying outside the library. EDSON met with the pt. bedside in ED. Pt. is alert and oriented x 4. Pt. appears disheveled. Pt admitted to drinking a pint of vodka. Pt. states he has been homeless for 4 years and is currently staying with friends at [address] [facility] in [place]. Pt. receives $1071 in SSI and SSDI per month. Pt has insight into his alcoholism but states, he is not ready to change at this time. Pt. stated, " it's me with the problem." SW expressed empathy to the pt by providing reflective listening. Pt. drinks a pint of vodka daily. Pt. was in an alcohol treatment program in [place] a year ago but did not like it. Pt. stated, the cliental were all young. SW informed pt.to call the [facility] Substance Abuse hotline (904) /824-0979 for linkage to an appropriate alcohol treatment program. Pt. takes Dilantin and Keppra for seizure disorder. Pt. has a psychiatric diagnosis of Depression and Anxiety. Pt. denies suicidal and homicidal ideations and visual/auditory hallucinations at this time. Pt. reports no recent seizures. Pt. stated, he will think about it and look into attending a program. Currently, pt does not seem to have the motivation to change his behavior. SW supported pt' s self-efficacy and encouraged pt. to attend a program. Pt. was provided with the following list of Alcohol programs: [facility], [address] [facility]. ; [facility] , [address] [facility] ; [facility], [place] and [facility] , [address] [facility]. Homeless patient waiver Form was placed in the chart for pt. to sign upon discharge. Pt. will require TAP card upon discharge.
--- NOTE | 2019-07-02 17:44 | NUR ---
patient in bed, resting and asleep, in no distress. Sitter at bedside.
[2019-07-02] MEDS ORDERED: ONDANSETRON 4 MG TAB.RAPDIS SL ONE (19:30)
[2019-07-02] MEDS ORDERED: ONDANSETRON 4 MG TAB.RAPDIS ONE (19:35)
--- NOTE | 2019-07-02 19:41 | NUR ---
ambulatory with a steady gait. DISCHARGE PAPERS GIVEN. TAP CARD PROVIDED.
[2019-07-02 19:54] VITALS: BP 121/81
== END 2019-07-02 19:54 | disposition home or self-care (01) ==
LOC: ER 13:49
DX: F10.129 Alcohol abuse with intoxication, unspecified (principal); G40.909 Epilepsy, unspecified, not intractable, without status epilepticus; I10 Essential (primary) hypertension; F19.10 Other psychoactive substance abuse, uncomplicated; F17.200 Nicotine dependence, unspecified, uncomplicated; Y90.9 Presence of alcohol in blood, level not specified; Z59.0 Homelessness; Z79.899 Other long term (current) drug therapy
CPT/HCPCS: 82962 ×2; 99283; Q0162

== ENCOUNTER 2019-08-19 16:54 | Emergency (ER) | payer OTHER ==
[~2019-08-19] VITALS: Ht 165.1 cm; Wt 61.2 kg
--- NOTE | 2019-08-19 17:06 | NUR ---
BIB RA [address] "[address] Intoxicated/Alcohol abuse. BS-158" PT AWAKE, ALERT, -SOB, NAD NOTED, PT ON MONITOR, VSS, PENDING MD SUNG
[2019-08-19] MEDS ORDERED: LEVETIRACETAM (250 MG) 250 MG TABLET PO ONE ×2 (17:30→18:06)
[2019-08-19 17:51] LABS: BASOPHILS # (AUTO) 0.2 /CMM (0.0-0.2); BASOPHILS % (AUTO) 1.8 % (0.0-2.0); EOSINOPHILS % (AUTO) 1.2 % (0.0-6.0); HEMATOCRIT 44 % (39-51); HEMOGLOBIN 14.7 g/dL (13.5-17.5); LYMPHOCYTES # (AUTO) 3.2 /CMM (0.8-4.8); LYMPHOCYTES % (AUTO) 33.6 % (20.0-44.0); MEAN CORPUSCULAR HGB CONC 33 g/dl (31.0-36.0); MEAN CORPUSCULAR VOLUME 106 fL (80-96); MONOCYTES # (AUTO) 0.7 /CMM (0.1-1.30); MONOCYTES % (AUTO) 7.6 % (2.0-12.0); NEUTROPHILS # (AUTO) 5.4 /CMM (1.8-8.9); NEUTROPHILS % (AUTO) 55.8 % (43.0-81.0); PLATELET COUNT (AUTO) 479 /CMM (150-450); RED BLOOD CELL COUNT(AUTO) 4.17 MIL/uL (4.5-6.0); WHITE BLOOD COUNT (AUTO) 9.7 K/uL (4.3-11.0)
[2019-08-19 18:14] LABS: CARBON DIOXIDE 31 mmol/L (21-32); CHLORIDE 109 mmol/L (98-107); CREATININE 0.8 mg/dL (0.6-1.3); GLUCOSE 81 mg/dL (74-106); POTASSIUM 5.2 mmol/L (3.5-5.1); SODIUM SERUM 149 mmol/L (136-145); UREA NITROGEN, BLOOD 8 mg/dL (7-18)
[2019-08-19 18:22] LABS: ALANINE AMINOTRANSFERASE 53 U/L (12-78); ALBUMIN 3.2 g/dL (3.4-5.0); ALCOHOL, BLOOD 377 mg/dL (0-0); ALKALINE PHOSPHATASE 136 U/L (46-116); ASPARTATE AMINOTRANSFERASE 71 U/L (15-37); BILIRUBIN,DIRECT 0.1 mg/dL (0.0-0.2); BILIRUBIN,TOTAL 0.4 mg/dL (0.2-1.0); SALICYLATE 2.2 mg/dL (2.8-20.0); TOTAL PROTEIN, SERUM 7.4 g/dL (6.4-8.2)
[2019-08-19 18:38] LABS: PHENYTOIN (DILANTIN) < 0.5 ug/ml (10.0-20.0)
[2019-08-19] MEDS ORDERED: IV NS 0.9% 1,000 ML BAG IV ONE (19:00)
[2019-08-19] MEDS ORDERED: SODIUM POLYSTYRENE SULFONATE 15 G/60 ML BOTTLE PO ONE (19:00)
[2019-08-19] MEDS ORDERED: phenytoin SODIUM IV 1,000 MG in IV NS 0.9% 100 ML IV ONE (19:30)
[2019-08-19 20:10] LABS: BASOPHILS % (MANUAL) 1 % (0.0-2.0); LYMPHOCYTES % (MANUAL) 23 % (16-48); MONOCYTES % (MANUAL) 8 % (0-11.0); NEUTROPHILS % (MANUAL) 64 (42-76); REACTIVE LYMPHOCYTES 4 % (0-0)
--- NOTE | 2019-08-19 20:25 | NUR ---
PT GIVEN URINAL, PT WAS UNABLE TO PROVIDE URINE SAMPLE AT THIS TIME
[2019-08-19] MEDS ORDERED: SODIUM POLYSTYRENE SULFONATE 15 G/60 ML BOTTLE ONE (20:29)
--- NOTE | 2019-08-19 21:00 | NUR ---
per dr soriano, she does not need urine at this time, pt etoh level above 300, when pt is more sober, pt can be safely d/c'd
[2019-08-19 22:40] LABS: CALCIUM, SERUM 7.8 mg/dL (8.5-10.1); CREATININE 0.7 mg/dL (0.6-1.3)
--- NOTE | 2019-08-20 01:09 | NUR ---
Patient is resting comfortably in bed with eyes closed. Easily aroused. VSS
--- NOTE | 2019-08-20 06:02 | NUR ---
RPatient is resting comfortably in bed with eyes closed. Easily aroused. VSS. SITTER AT BEDSIDE.
--- NOTE | 2019-08-20 06:07 | NUR ---
PT AWAKE AND ALERT. AMBULATED TO THE BATHROOM. VSS. WILL CONT TO MONITOR ,
--- NOTE | 2019-08-20 07:55 | NUR ---
urine output of 200ml
--- NOTE | 2019-08-20 10:28 | NUR ---
GROCERY WORKER met with the pt per his request regarding placement referrals. Pt. is alert and oriented x 4. Pt. informed GROCERY WORKER, he resides with roommates, but does not like it there and wants to move. GROCERY WORKER gave pt. brochure to [facility], A free Adult and senior Placement Referral Agency. automotive parts counter person, Rodrick Schaffer . GROCERY WORKER updated PABLITO Rinaldi regarding pt. being provided with needful resources.
--- NOTE | 2019-08-20 10:55 | NUR ---
Patient discharged to home in stable condition. Written and verbal after care instructions given. Patient verbalizes understanding of instruction.
--- NOTE | 2019-08-20 10:56 | NUR ---
IV removed. Catheter intact and site benign. Pressure and 4x4 applied to site. No bleeding noted.
--- NOTE | 2019-08-20 11:00 | NUR ---
TAP CARD PROVIDIED TO PT
[2019-08-20 11:01] VITALS: BP 126/66
== END 2019-08-20 11:00 | disposition home or self-care (01) ==
LOC: ER 16:56
DX: F10.129 Alcohol abuse with intoxication, unspecified (principal); G40.909 Epilepsy, unspecified, not intractable, without status epilepticus; E87.0 Hyperosmolality and hypernatremia; I10 Essential (primary) hypertension; F19.10 Other psychoactive substance abuse, uncomplicated; Y90.8 Blood alcohol level of 240 mg/100 ml or more; Z59.0 Homelessness; Z79.899 Other long term (current) drug therapy
CPT/HCPCS: 36415; 80048 ×2; 80076; 80185; 80307; 80329; 84484; 85025; 93005; 96365; 99284; G0480; J1165; J7030 ×2

== ENCOUNTER 2019-09-30 15:15 | Emergency (ER) | payer OTHER ==
[~2019-09-30] VITALS: Ht 165.1 cm; Wt 61.2 kg
--- NOTE | 2019-09-30 19:30 | NUR ---
ASSUMED CARE FOR PATEINT AT THIS TIME. PT RESTING COMFORTABLY IN BED. VITAL SIGNS STABLE. RESPIRATIONS EVEN AND UNLABORED. NO ACUTE DISTRESS NOTED AT THIS TIME. WILL CONTINUE TO MONITOR
--- NOTE | 2019-09-30 20:00 | NUR ---
PT AWAKE, AAOX4. AMBULATORY WITH STEADY GAIT. NO ACUTE DISTRESS NOTED AT THIS TIME. MD APARICIO
--- NOTE | 2019-09-30 20:17 | NUR ---
Patient discharged to home in stable condition. Written and verbal after care instructions given. Patient verbalizes understanding of instruction.
[2019-09-30 20:30] VITALS: BP 130/80
== END 2019-09-30 20:17 | disposition home or self-care (01) ==
LOC: ER 15:18
DX: F10.129 Alcohol abuse with intoxication, unspecified (principal); G40.909 Epilepsy, unspecified, not intractable, without status epilepticus; F17.200 Nicotine dependence, unspecified, uncomplicated; I10 Essential (primary) hypertension; Z59.0 Homelessness; Z79.899 Other long term (current) drug therapy; Y90.9 Presence of alcohol in blood, level not specified

== ENCOUNTER 2019-11-10 21:49 | Emergency (ER) | payer OTHER ==
[~2019-11-10] VITALS: Ht 167.6 cm; Wt 61.2 kg
--- NOTE | 2019-11-10 21:54 | NUR ---
AMA FROM THE STREET C/O UNABLE TO WALK PER REPORT JUST GOT RELEASE FROM [facility]. PT TO BED 12, PLACED ON MONITOR, PT AAOX4, -SOB, NAD NOTED, PENDING ER PROVIDER PINEDA
--- NOTE | 2019-11-10 22:15 | NUR ---
DR JEAN-BAPTISTE AT BEDSIDE FOR EVAL
--- NOTE | 2019-11-10 23:39 | NUR ---
PER DR. JEAN-BAPTISTE PT IS OKAY FOR DISCHARGE, D/C PAPERS IN CHART
--- NOTE | 2019-11-11 04:15 | NUR ---
PT WANTED TO GO HOME. PT SOBER. ROADTESTED. PASSED
--- NOTE | 2019-11-11 04:30 | NUR ---
Patient discharged to home in stable condition. Written and verbal after care instructions given. Patient verbalizes understanding of instruction.PT ambulatory with a steady gait
[2019-11-11 04:31] VITALS: BP 121/48
== END 2019-11-11 04:32 | disposition home or self-care (01) ==
LOC: ER 21:51
DX: F10.10 Alcohol abuse, uncomplicated (principal); G40.909 Epilepsy, unspecified, not intractable, without status epilepticus; I10 Essential (primary) hypertension; Y90.9 Presence of alcohol in blood, level not specified; Z59.0 Homelessness; Z79.899 Other long term (current) drug therapy

== ENCOUNTER 2020-01-03 10:31 | Inpatient (IN) | payer OTHER ==
[~2020-01-03] VITALS: Ht 177.8 cm; Wt 65.8 kg
--- NOTE | 2020-01-03 10:47 | NUR ---
PT BIB FRIEND/LANDLORD TO ER BED 12. PT C/O L HIP AREA AND L SHOULDER PAIN S/P GLF LAST WEEK. PT STATES STILL IN A LOT OF PAIN AND UNABLE TO STAND UP. STRONG URINE SMELL. PT IS AAOX3. STABLE VITALS. AWAITING MD SUNG.
--- NOTE | 2020-01-03 10:47 | NUR ---
CELESTINO LANDLORHayden FOR L HIP PAIN AND L SHOULDER PAIN S/P FALL 7 DAYS DIRECTOR OF DANCE, TO ER BED 12, HOOKED TO MONITOR, CHANGED TO HOSP GOWN, WARM BLANKET PROVIDED, DR JIMENEZ AT BEDSIDE
[2020-01-03 11:09] LABS: BASOPHILS # (AUTO) 0.1 /CMM (0.0-0.2); BASOPHILS % (AUTO) 0.5 % (0.0-2.0); EOSINOPHILS % (AUTO) 0.1 % (0.0-6.0); HEMATOCRIT 42 % (39-51); HEMOGLOBIN 13.9 g/dL (13.5-17.5); LYMPHOCYTES # (AUTO) 1.2 /CMM (0.8-4.8); LYMPHOCYTES % (AUTO) 10.7 % (20.0-44.0); MEAN CORPUSCULAR HGB CONC 33 g/dl (31.0-36.0); MEAN CORPUSCULAR VOLUME 101 fL (80-96); MONOCYTES % (AUTO) 17.3 % (2.0-12.0); NEUTROPHILS # (AUTO) 8.2 /CMM (1.8-8.9); NEUTROPHILS % (AUTO) 71.4 % (43.0-81.0); PLATELET COUNT (AUTO) 321 /CMM (150-450); RED BLOOD CELL COUNT(AUTO) 4.17 MIL/uL (4.5-6.0); WHITE BLOOD COUNT (AUTO) 11.5 K/uL (4.3-11.0)
--- NOTE | 2020-01-03 11:12 | NUR ---
DRUG REGULATORY AFFAIRS SPECIALIST AT BEDSIDE FOR XRAY.
--- NOTE | 2020-01-03 11:17 | NUR ---
ASSUMED PT CARE
[2020-01-03 11:18] LABS: CALCIUM, SERUM 9.1 mg/dL (8.5-10.1); CARBON DIOXIDE 32 mmol/L (21-32); CHLORIDE 92 mmol/L (98-107); CREATININE 0.7 mg/dL (0.6-1.3); GLUCOSE 174 mg/dL (74-106); POTASSIUM 3.7 mmol/L (3.5-5.1); SODIUM SERUM 130 mmol/L (136-145); UREA NITROGEN, BLOOD 10 mg/dL (7-18)
[2020-01-03 11:32] LABS: PHENYTOIN (DILANTIN) < 0.5 ug/ml (10.0-20.0)
[2020-01-03] MEDS ORDERED: MULT-447 PO (11:43)
--- NOTE | 2020-01-03 12:02 | NUR ---
EKG AT BEDSIDE
--- NOTE | 2020-01-03 12:45 | NUR ---
MOVE SHEET SUBMITTED AND TEXTED FOR BED.
[2020-01-03] MEDS ORDERED: PHENYTOIN SODIUM IV 1,000 MG in IV NS 0.9% 100 ML IV ONE (13:00)
--- NOTE | 2020-01-03 13:03 | NUR ---
PT PLACED ON O2 VIA NC @ 2LPM, PT NOTED SATTING AT 92% ON RA. SATTING 99% AFTER O2. MD APARICIO
--- NOTE | 2020-01-03 13:25 | NUR ---
GOT BED 325
--- NOTE | 2020-01-03 14:07 | NUR ---
REPORT GIVEN TO ROMELIA LYONS FOR VANDANA.
--- NOTE | 2020-01-03 14:56 | NUR ---
PT TRANSPORTED TO UNIT ON [facility] W/ EMT AND RN AT BEDSIDE W/ ACLS PROTOCOL. NAD NOTED DURING TRANSPORT.
--- NOTE | 2020-01-03 15:30 | NUR ---
MS/RN - Admission Received patient from ER, alert and oriented x 4, admitted for left hip fracture/seizure disorder under the care of Dr. Rogers. Patient oriented to room, all belongings accounted for. Saline lock on the left hand is patent and intact. Skin assessment done, noted with multiple skin breakdown, documented and pictures taken. LUE/LLE with good peripheral pulses, no edema, limited ROM and tenderness to left shoulder and left hip, no deformity seen. Fall, aspiration and seizure precautions initiated. Awaiting for admission orders from Dr. Rogers. Will continue to monitor closely.
[2020-01-03 16:00] VITALS: BP 117/74
[2020-01-03] MEDS ORDERED: MAGNESIUM HYDROXIDE 30 ML UDC PO PRN (16:00)
[2020-01-03] MEDS ORDERED: MORPHINE SULFATE INJ 2 MG/ML DISP.SYRIN IV PRN (16:00)
[2020-01-03] MEDS ORDERED: HYDROCODONE/APAP 5/325MG 1 EACH TABLET PO PRN (16:00)
[2020-01-03] MEDS ORDERED: ONDANSETRON HCL/PF 4 MG/2 ML VIAL IVP PRN (16:00)
[2020-01-03] MEDS ORDERED: MAG HYDROX/AL HYDROX/SIMETH 30 ML UDC PO PRN (16:00)
[2020-01-03] MEDS ORDERED: ACETAMINOPHEN 325 MG TABLET PO PRN (16:00)
--- NOTE | 2020-01-03 18:49 | NUR ---
MS/RN End of shift summary Patient is resting in bed. Still complains of left hip and shoulder, but refuses to take pain medications. Dr. Rogers was at bedside at 1730 and discussed the plan of care. Patient verbalized understanding. Pending orthopedics consult, psych consult, and social service evaluation. Fall precautions maintained. Will endorse to the director channel RN accordingly.
[2020-01-03] MEDS: LEVETIRACETAM (250 MG) 250 MG TABLET PO SCH (20:41)
[2020-01-03] MEDS: PHENYTOIN EXTENDED RELEASE 100 MG CAPSULE PO SCH (20:42)
[2020-01-03] MEDS: ZOLPIDEM TARTRATE 5 MG TABLET PO PRN (20:42)
[2020-01-03] MEDS: Z GUARD REMEDY 2 OZ OINT TP PRN (20:47)
[2020-01-03 20:48] VITALS: BP 104/69
[2020-01-03] MEDS: Z GUARD REMEDY 2 OZ OINT TP SCH (20:48)
[2020-01-04 06:15] LABS: BASOPHILS % (AUTO) 0.4 % (0.0-2.0); EOSINOPHILS % (AUTO) 0.5 % (0.0-6.0); HEMATOCRIT 41 % (39-51); HEMOGLOBIN 13.5 g/dL (13.5-17.5); LYMPHOCYTES # (AUTO) 1.5 /CMM (0.8-4.8); LYMPHOCYTES % (AUTO) 14.3 % (20.0-44.0); MEAN CORPUSCULAR HGB CONC 33 g/dl (31.0-36.0); MEAN CORPUSCULAR VOLUME 103 fL (80-96); MONOCYTES # (AUTO) 1.6 /CMM (0.1-1.30); MONOCYTES % (AUTO) 15.5 % (2.0-12.0); NEUTROPHILS # (AUTO) 7.3 /CMM (1.8-8.9); NEUTROPHILS % (AUTO) 69.3 % (43.0-81.0); PLATELET COUNT (AUTO) 227 /CMM (150-450); RED BLOOD CELL COUNT(AUTO) 3.95 MIL/uL (4.5-6.0); WHITE BLOOD COUNT (AUTO) 10.6 K/uL (4.3-11.0)
[2020-01-04 07:09] LABS: CREATININE 0.6 mg/dL (0.6-1.3); MAGNESIUM 1.5 mg/dL (1.8-2.4); PHOSPHORUS 3.2 mg/dL (2.5-4.9)
[2020-01-04 07:12] LABS: POTASSIUM 2.8 mmol/L (3.5-5.1)
--- NOTE | 2020-01-04 07:30 | NUR ---
MS/ RN: RECEIVED PATIENT IN BED ALERT ORIENTED X 4 . NO ACUTE DISTRESS NOTED. BREATHING UNLABORED. NO SOB NOTED. SAFETY MEASURES IN PLACE. BED IN LOW POSITION. PATIENT STATES PAIN ON BOTH LEFT AND RIGHT HIP AREA RATES PAIN 8/10. PATIENT IS AWAITING SURGERY AND IS NPO. SURGERY TIME UNKNOWN AT THE MOMENT. WILL CONTINUE TO MONITOR PATIENT ACCORDINGLY THROUGH OUT SHIFT.
[2020-01-04] MEDS: Magnesium 1GM/D5W 100ML PREMIX 100 ML IV SCH ×4 (07:48→21:50)
[2020-01-04] MEDS ORDERED: POTASSIUM CHLORIDE 20 MEQ TAB.PRT.SR PO SCH (08:00)
[2020-01-04 08:51] VITALS: BP 117/89
[2020-01-04] MEDS: NEOMY SULF/BACITRAC ZN/POLY 15 GM TUBE TP SCH (09:00)
[2020-01-04] MEDS: LEVETIRACETAM (250 MG) 250 MG TABLET PO SCH ×2 (09:00→20:19)
[2020-01-04] MEDS: MULTIVIT W/MINERALS 1 TAB TABLET PO SCH (09:00)
[2020-01-04] MEDS: PHENYTOIN EXTENDED RELEASE 100 MG CAPSULE PO SCH ×2 (09:00→20:19)
--- NOTE | 2020-01-04 09:06 | NUR ---
Radiology attempted to cone picker pt at 0900 hrs, rn needs to clean pt first before going to ct. RN will notify us when pt is ready for CT.
[2020-01-04 09:15] LABS: THYROID STIMULATING HORMONE 0.907 uIU/mL (0.358-3.74)
[2020-01-04] MEDS: POTASSIUM CL. PREMIX PERIPHER. 50 ML IV SCH ×6 (09:40→19:44)
--- NOTE | 2020-01-04 09:57 | NUR ---
WOUND CARE CONSULT: LIMITED ASSESSMENT TODAY DUE TO PT DISCOMFORT AND REFUSAL TO MOVE LEFT LOWER EXTREMITY OR TURN FOR FULL SKIN ASSESSMENT. PT NOTED TO HAVE LEFT EYEBROW DRY ABRASION, AND RT HIP/THIGH AREA ABRASION, PRESENT ON ADMISSION. RECOMMENDATIONS MADE FOR SKIN PROTECTION AND WOUND CARE. DISCUSSED WITH NURSING STAFF. WILL SEE PRN. HASKINS IN AGREEMENT WITH PLAN OF CARE. CURRENT ARACELI SCORE IS 13.
[2020-01-04] MEDS: Z GUARD REMEDY 2 OZ OINT TP SCH ×2 (11:11→21:28)
[2020-01-04] MEDS ORDERED: LORAZEPAM 1 MG TABLET PO PRN (11:30)
--- NOTE | 2020-01-04 11:35 | NUR ---
MS/RN NOTE DR BOYKIN IS MADE AWARE THAT THE PATIENT IS HARDSTICK AND NOT ABLE TO MOVE DUE TO LEFT HIP FRACTURE. RECEIVED ORDERS OF MIDLINE AND DURAN CATH INSERTION. THE ORDERS ARE READ BACK, VERIFIED. NOTED AND CARRIED OUT.
--- NOTE | 2020-01-04 14:45 | NUR ---
Social service consult requested by MD for alcohol abuse. Per MD notes and chart review, pt is a 59-year-old male, patient is self-referred. Patient stated 4 days ago he had a tonic-clonic seizure and injured his left shoulder and left hip. History of similar injury to the right hip. Unknown head injury. LINING MARKER attempted to assess the pt, however pt is asleep. Pt is scheduled for surgery later today. LINING MARKER to f/u at a later time.
--- NOTE | 2020-01-04 15:45 | NUR ---
MS/RN NOTE THE PATIENT REFUSED DURAN CATH INSERTION DESPITE EXPLAINING RISKS AND BENEFITS.
[2020-01-04 16:04] VITALS: BP 117/74
[2020-01-04] MEDS ORDERED: ANESTHESIA TRAY IN PYXIS 1 EA TRAY MC ONE (16:11)
--- NOTE | 2020-01-04 17:20 | NUR ---
MS/RN NOTE RECEIVED CALL FROM ALEXANDRA LIN) STATING THAT THE PATIENT`S SURGERY IS CANCELED FOR TODAY AND THE PATIENT MAY EAT.
[2020-01-04] MEDS ORDERED: Magnesium 1GM/D5W 100ML PREMIX PIGGYBACK IV ONE (19:00)
--- NOTE | 2020-01-04 19:03 | NUR ---
MS/RN NOTE MAGNESIUM 1 G DUE AT 0745 AND 0845 WERE NOT ADMINISTERED DUE TO PATIENT NOT HAVING IV LINE. HOWEVER, THE ORDERS WERE SCHEDULED FOR 1900 AND OUTSOLE PARAFFINER WILL BE ENDORSED TO ADMINISTER THE MEDICATION.
--- NOTE | 2020-01-04 19:16 | NUR ---
MS/RN NOTE THE PATIENT IS ALERT AND ORIENTED X4. DENIES PAIN. THE PATIENT IN NO APPARENT DISTRESS. IN ROOM AIR AND DENIES SOB. OXYGEN SATURATION IN ROOM AIR IS AT 97%. RESPIRATION REGULAR AND UNLABORED. ROBERT MIDLINE G 18 PATENT AND POTASSIUM INFUSING PER ORDER. NO S/S INFILTRATION NOTED. 1 BAG OF POTASSIUM IS HANDED TO THE .NET DEVELOPER FOR ADMINISTRATION PER ORDER. .NET DEVELOPER IS MADE AWARE OF THE ORDER OF MAGNESIUM 2 G IV. BED LOW AND LOCKED. SIDE RAILS UP X3. CALL LIGHT WITHIN REACH. ENDORSED TO .NET DEVELOPER.
[2020-01-04 20:00] VITALS: BP 117/71
--- NOTE | 2020-01-04 20:10 | NUR ---
rn notes/refusal for scd: education provided to pt regarding thromboembolism prevention, pt a/o x3, refusing scd. made aware.
[2020-01-04] MEDS: Z GUARD REMEDY 2 OZ OINT TP PRN (20:23)
[2020-01-04 20:30] VITALS: BP 117/71
--- NOTE | 2020-01-04 20:30 | NUR ---
RN NOTES: ORDER TO INSERT DURAN CATHETER HOWEVER PT REFUSED, STATED DAY RN TRIED TWICE BUT IT WAS PAINFUL AND HE COULDN'T TOLERATE IT, HE STATED HE PREFERS USING THE URINAL OR DIAPER, PT VOIDED IN THE DIAPER, SOAKING WET, ALSO HAD ONE BM, EDUCATION PROVIDED TO PT, REMAINS TO REFUSED
--- NOTE | 2020-01-04 21:00 | NUR ---
rn notes: epic md major donor coordinator made aware of pt';s vte score, no anticoagulant order, informed pt for surgery/ortho left hip im rodding on 01/05, no new order receive at this time.
[2020-01-04] MEDS: ZOLPIDEM TARTRATE 5 MG TABLET PO PRN (21:27)
--- NOTE | 2020-01-04 21:33 | NUR ---
JULIANA OROZCO: PT REQUESTING FOR HIS SLEEPING, PRN AMBIEN ADMINISTERED AT THIS TIME.
--- NOTE | 2020-01-04 22:00 | NUR ---
rn notes/refusal for turning and repositioning: education provided to pt regarding pressure injury development, as pt refusing for turning and repositioning and been laying on his back since 1999, pt refused, stated he's comfortable with his position.
--- NOTE | 2020-01-05 00:19 | NUR ---
rn notes/refusal for repositioning: pt refused to be reposition at this time, education provided to the pt, pt stated he would like to sleep and leave him alone.
--- NOTE | 2020-01-05 06:38 | NUR ---
END OF SHIFT REPORT: RECEIVED REPORT FROM CRYSTAL RN AT 1925. PT A/O X3 ON RA RESPIRATIONS EVEN AND UNLABORED. PT HAS LEFT HIP FRACTURE FOR SCHEDULED LEFT HIP IM RODDING ON Tuesday01/06/[address] NG, CONSENT SECURED BY GERARDO RN. LOW K 3.3, PT RECEIVED K REPLACEMENT AND 2 GM MAGNESIUM REPLACEMENT FOR MG LEVEL 1.5. ROBERT MIDLINE REMAINS PATENT AND FLUSHING WELL, ON HL, NO S/S OF IV INFILTRATION NOTED. PRN AMBIEN ADMINISTERED PER PT REQUEST FOR SLEEPING PILL. ALL DUE MEDS ADMINISTERED SCHEDULED. PT ALSO REFUSING FOR TURNING AND REPOSITIONING DESPITE PROVIDING EDUCATION. AM CARE AND COMPLETE LINEN CHANGE PROVIDED TO PT. VS REMAINS STABLE, NEEDS ATTENDED, SAFETY PRECAUTIONS FOR FALL REMAINS ENGAGED, CALL LIGHT IN REACH, WILL ENDORSE TO GERARDO RN FOR VANDANA.
--- NOTE | 2020-01-05 07:30 | NUR ---
MS/RN Opening note Patient received form hourly shift. A/O X3, vital signs stable, pain scale currently 8/10, will given pain medication. Midline noted to right upper arm, flushing well with normal saline. Patient asked if he was willing to have loyola catheter inserted, again refused. Call light within reach, side rails X3 in upright position, brakes locked. Will continue to monitor and ensure safety.
[2020-01-05 07:36] LABS: BASOPHILS # (AUTO) 0.1 /CMM (0.0-0.2); BASOPHILS % (AUTO) 0.6 % (0.0-2.0); EOSINOPHILS % (AUTO) 0.7 % (0.0-6.0); HEMATOCRIT 40 % (39-51); HEMOGLOBIN 13.4 g/dL (13.5-17.5); LYMPHOCYTES # (AUTO) 1.4 /CMM (0.8-4.8); LYMPHOCYTES % (AUTO) 13.2 % (20.0-44.0); MEAN CORPUSCULAR HGB CONC 33 g/dl (31.0-36.0); MEAN CORPUSCULAR VOLUME 102 fL (80-96); MONOCYTES # (AUTO) 1.6 /CMM (0.1-1.30); MONOCYTES % (AUTO) 14.5 % (2.0-12.0); NEUTROPHILS # (AUTO) 7.8 /CMM (1.8-8.9); PLATELET COUNT (AUTO) 379 /CMM (150-450); RED BLOOD CELL COUNT(AUTO) 3.96 MIL/uL (4.5-6.0)
[2020-01-05 08:00] VITALS: BP 100/67
[2020-01-05 08:08] LABS: CALCIUM, SERUM 9.1 mg/dL (8.5-10.1); CREATININE 0.5 mg/dL (0.6-1.3); POTASSIUM 3.7 mmol/L (3.5-5.1)
[2020-01-05] MEDS: MULTIVIT W/MINERALS 1 TAB TABLET PO SCH (08:44)
[2020-01-05] MEDS: THIAMINE HCL 100 MG TABLET PO SCH (08:44)
[2020-01-05] MEDS: LEVETIRACETAM (250 MG) 250 MG TABLET PO SCH ×2 (08:44→20:34)
[2020-01-05] MEDS: PHENYTOIN EXTENDED RELEASE 100 MG CAPSULE PO SCH ×2 (08:44→20:34)
[2020-01-05] MEDS: NEOMY SULF/BACITRAC ZN/POLY 15 GM TUBE TP SCH (08:49)
[2020-01-05] MEDS: MULTIPLE VIT (LYCOPENE/FA/MV,CA,IRON,MIN/LUT)1 TAB PO SCH (08:49)
[2020-01-05] MEDS: Z GUARD REMEDY 2 OZ OINT TP SCH ×2 (08:49→20:36)
--- NOTE | 2020-01-05 09:00 | NUR ---
MS/RN Medications Morning medications administered as ordered.
--- NOTE | 2020-01-05 09:13 | NUR ---
MS/RN Labs Morning labs reviewed, all within normal range for patient.
[2020-01-05 10:49] LABS: MAGNESIUM 1.8 mg/dL (1.8-2.4); PHOSPHORUS 3.3 mg/dL (2.5-4.9)
[2020-01-05] MEDS: ENOXAPARIN SODIUM 40 MG/0.4 ML DISP.SYRIN SQ SCH (11:00)
--- NOTE | 2020-01-05 11:01 | NUR ---
MS/RN Lovenox As per Dr Abebe order, lovenox 40mg administered for today only. Will be restarted after surgery as per orthopedic doctors instruction.
[2020-01-05 16:00] VITALS: BP 105/69
[2020-01-05 16:25] VITALS: BP 105/69
--- NOTE | 2020-01-05 18:17 | NUR ---
MS/RN End note Patient has refused to be turned and repositioned at times throughout the day despite education and instruction about preventing skin breakdown. All medications administered as ordered, pain medication only given once this morning. Aware that no food or drink to be taken after midnight due to surgery schedule for 0830 tomorrow. [employer] forms already signed and placed in chart. All other needs addressed, will endorse to casino shift manager.
[2020-01-05 20:00] VITALS: BP 105/69
[2020-01-05] MEDS: Z GUARD REMEDY 2 OZ OINT TP PRN (20:35)
--- NOTE | 2020-01-05 20:41 | NUR ---
PRN TYLENOL: PT REQUESTED FOR TYLENOL FOR HEAD ACHE AND MILD LEFT HIP PAIN 10/22. PRN TYLENOL 650 MG TAB ADMINISTERED ORDERED. SNACKS PROVIDED, ENCOURAGE DRINKING WATER.
--- NOTE | 2020-01-05 21:00 | NUR ---
RN NOTES: REFUSED COOLING MEASURES, REFUSED ICE PACK
[2020-01-05] MEDS: ZOLPIDEM TARTRATE 5 MG TABLET PO PRN (22:06)
--- NOTE | 2020-01-05 22:07 | NUR ---
PRN AMBIEN: PT REQUESTED FOR SLEEPING PILL, PRN AMBIEN ADMINISTERED AT THIS TIME, WILL CONTINUE MONITORING PT.
--- NOTE | 2020-01-05 23:10 | NUR ---
rn notes: pt refusing diaper change,stated he wants to be change in am at 0500, stated do not bother him and leave him alone, education provided to pt, rn telephone triage made aware
--- NOTE | 2020-01-05 23:34 | NUR ---
rn notes: notified by charge that new protocol/policy for or, to swab pt for covid before surgery, notified epic md semiconductor engineer, telephone order received to swab for covid 19. order read back verified and carried out.
--- NOTE | 2020-01-05 23:53 | NUR ---
rn notes: placed on isolation r/o covid, ppe utilized. droplet contact airborne.
--- NOTE | 2020-01-06 06:59 | NUR ---
end of shift report: pt npo for left hip im rodding at [address] durham, all consent signed, checklist completed, available at chart. am care provided, complete linen change provided. covid19 swab performed and sent to lab per surgery policy. poli midline remains patent and flushing well, on hl, no s/s of iv infiltration noted. prn ambien administered for pt's request for sleeping pill. prn tylenol administered for pt's c/o left hip pain, and 99.5 temp. pt able ti turn by himself on right side and back. kept on isolation precaution, as we swab pt for covid (due to surgery),ppe uitlized. vs remains stable, needs attemded. safety precautions for fall remains engaged, call light in reach, will endorse to day rn for continuity of care.
[2020-01-06 08:00] VITALS: BP 118/78
[2020-01-06] MEDS ORDERED: BUPIVACAINE 0.25% 75 MG/30 ML VIAL ONE (08:25)
[2020-01-06] MEDS ORDERED: HYDROMORPHONE INJ 2 MG/ML DISP.SYRIN ONE (08:28)
[2020-01-06] MEDS: NEOMY SULF/BACITRAC ZN/POLY 15 GM TUBE TP SCH (08:29)
[2020-01-06] MEDS: MULTIPLE VIT (LYCOPENE/FA/MV,CA,IRON,MIN/LUT)1 TAB PO SCH (08:29)
[2020-01-06] MEDS: PHENYTOIN EXTENDED RELEASE 100 MG CAPSULE PO SCH ×2 (08:29→21:32)
[2020-01-06] MEDS ORDERED: MIDAZOLAM HCL 2 MG/2ML VIAL ONE (08:29)
[2020-01-06] MEDS: MULTIVIT W/MINERALS 1 TAB TABLET PO SCH (08:29)
[2020-01-06] MEDS: LEVETIRACETAM (250 MG) 250 MG TABLET PO SCH ×2 (08:29→21:32)
[2020-01-06] MEDS: THIAMINE HCL 100 MG TABLET PO SCH (08:29)
[2020-01-06] MEDS: Z GUARD REMEDY 2 OZ OINT TP SCH ×2 (08:30→21:33)
--- NOTE | 2020-01-06 08:30 | NUR ---
Patient picked up by OR staff for surgery. Pt awake , alert and oriented x3 , VS are stable , afebrile. Patient refused F/C
[2020-01-06] MEDS: ENOXAPARIN SODIUM 40 MG/0.4 ML DISP.SYRIN SQ SCH (10:00)
[2020-01-06] MEDS ORDERED: BUPIVACAINE 0.5 % PF 150 MG/30 ML VIAL ONE (10:34)
--- NOTE | 2020-01-06 11:19 | NUR ---
Patient back from surgery, VS are stable . Post op orders noted and and implemented
[2020-01-06 11:23] VITALS: BP 114/76
--- NOTE | 2020-01-06 11:30 | NUR ---
Patient tolerated regular diet well. No N/V reported. Patient also denies pain.
[2020-01-06] MEDS: IV LR 1000 ML 1,000 ML IV PRN (11:34)
[2020-01-06 15:25] LABS: CALCIUM, SERUM 8.5 mg/dL (8.5-10.1); CREATININE 0.7 mg/dL (0.6-1.3)
[2020-01-06 16:00] VITALS: BP_SYST 123; BP_DIAS 83; BP_DIAS 89
[2020-01-06] MEDS: CEFAZOLIN 2 GM in IV D5W 100 ML IV SCH (16:25)
[2020-01-06 18:18] LABS: BASOPHILS # (AUTO) 0.1 /CMM (0.0-0.2); EOSINOPHILS % (AUTO) 0.1 % (0.0-6.0); HEMATOCRIT 35 % (39-51); HEMOGLOBIN 11.3 g/dL (13.5-17.5); LYMPHOCYTES # (AUTO) 0.9 /CMM (0.8-4.8); MEAN CORPUSCULAR HGB CONC 32 g/dl (31.0-36.0); MEAN CORPUSCULAR VOLUME 104 fL (80-96); MONOCYTES # (AUTO) 0.9 /CMM (0.1-1.30); MONOCYTES % (AUTO) 8.5 % (2.0-12.0); NEUTROPHILS # (AUTO) 9.1 /CMM (1.8-8.9); NEUTROPHILS % (AUTO) 82.4 % (43.0-81.0); PLATELET COUNT (AUTO) 390 /CMM (150-450); RED BLOOD CELL COUNT(AUTO) 3.36 MIL/uL (4.5-6.0)
--- NOTE | 2020-01-06 18:34 | NUR ---
Patient awake alert and oriented x3, watching TV. Left hip dressing intact and patent. Patient using urinal. Refused to be repositioned. No pain meds given , patient tolerating well. All needs attended. Midline intact and patent , LR running as ordered. Safety precautions observed and call light within reach. Will endorse to next sift for VANDANA .
[2020-01-06 20:00] VITALS: BP 134/81
--- NOTE | 2020-01-06 20:00 | NUR ---
rn notes: s/p left hip im rodding today 01/05, left hip dressing c/d/i no active bleeding noted, no s/s of infection noted, will continue monitoring site.
[2020-01-06] MEDS: ZOLPIDEM TARTRATE 5 MG TABLET PO PRN (21:32)
--- NOTE | 2020-01-06 21:32 | NUR ---
pr ambien: pt requested for sleeping pill, prn ambien 5mg po administered to pt at this time, snacks provided.
--- NOTE | 2020-01-07 | NUR ---
rn notes: epic md mems integration engineer currently in the unit, made aware of mg result 1.7, yesterday 1.8, 2gm mg replaced on 01/03, per md repeat labs in am Mg
[2020-01-07] MEDS: CEFAZOLIN 2 GM in IV D5W 100 ML IV SCH (00:36)
[2020-01-07] MEDS: IV LR 1000 ML 1,000 ML IV PRN (00:37)
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
[2020-01-07] MEDS: HYDROCODONE/APAP 5/325MG 1 EACH TABLET PO PRN ×2 (04:18→09:51)
--- NOTE | 2020-01-07 04:18 | NUR ---
prn norco: pt called c/o 02/21 left hip pain, prn norco 2tablet administered to pt at this time, will continue to monitor and reassess pt.
--- NOTE | 2020-01-07 05:35 | NUR ---
rn notes/refusal for am care: re-offered am care including bed bath and complete linen change, but pt refused, stated he doesnt want it right now and would prefer to have it later. informed pt that his beddings and pads were soaking wet and it is not advisable to leave him like that, but pt strongly insisted not be clean at this time, rn hematology made aware, education provided to pt regarding importance og hygiene, cleanliness, infection prevention, and prevention of pressure injuries.
--- NOTE | 2020-01-07 06:44 | NUR ---
end of shift report: received report from nasim zapata last night at 1920. pending covid19 result, ppe utilized, pt on isolation airborne,droplet,contact. s/p left hip im rodding with dr durahm on 01/05. pt remains a/o x3 with episode of forgetfulness. poli midline remains patent and flushing well, infusing with lr at 75ml/hr. left hip surgical dressing remains in placed, no s/s of active bleeding noted, free from any s/s of infection. continent uses urinal. for pt eval today. vs remains stable, needs attended. safety precautions for fall remains engaged, call light in reach, will endorse to day rn for continuity of care.
[2020-01-07 07:11] LABS: BASOPHILS # (AUTO) 0.1 /CMM (0.0-0.2); BASOPHILS % (AUTO) 0.5 % (0.0-2.0); EOSINOPHILS % (AUTO) 1.4 % (0.0-6.0); HEMATOCRIT 30 % (39-51); LYMPHOCYTES # (AUTO) 1.4 /CMM (0.8-4.8); LYMPHOCYTES % (AUTO) 12.3 % (20.0-44.0); MEAN CORPUSCULAR HGB CONC 34 g/dl (31.0-36.0); MEAN CORPUSCULAR VOLUME 101 fL (80-96); MONOCYTES # (AUTO) 1.6 /CMM (0.1-1.30); MONOCYTES % (AUTO) 13.8 % (2.0-12.0); NEUTROPHILS # (AUTO) 8.1 /CMM (1.8-8.9); PLATELET COUNT (AUTO) 466 /CMM (150-450); RED BLOOD CELL COUNT(AUTO) 2.96 MIL/uL (4.5-6.0); WHITE BLOOD COUNT (AUTO) 11.2 K/uL (4.3-11.0)
[2020-01-07 07:13] LABS: CALCIUM, SERUM 8.2 mg/dL (8.5-10.1); CREATININE 0.6 mg/dL (0.6-1.3); POTASSIUM 3.6 mmol/L (3.5-5.1)
--- NOTE | 2020-01-07 07:30 | NUR ---
M/S RN NOTES PATIENT RESTING IN BED, NO RESPIRATORY DISTRESS, C/O PAIN ON THE LT HIP, PAIN TOLERABLE AT THIS TIME. SKIN WARM TO TOUCH, DRESSING ON THE LT HIP C/D/I. IV ACCESS SITE INTACT AND PATENT. PATIENT'S NEEDS ATTENDED, BED ON LOWEST LOCKED POSITION, CALL LIGHT WITHIN REACH. WILL CONTINUE TO MONITOR.
[2020-01-07 08:00] VITALS: BP 118/67
[2020-01-07] MEDS: MULTIVIT W/MINERALS 1 TAB TABLET PO SCH (08:56)
[2020-01-07] MEDS: LEVETIRACETAM (250 MG) 250 MG TABLET PO SCH ×2 (08:56→21:13)
[2020-01-07] MEDS: THIAMINE HCL 100 MG TABLET PO SCH (08:56)
[2020-01-07] MEDS: PHENYTOIN EXTENDED RELEASE 100 MG CAPSULE PO SCH ×2 (08:56→21:14)
[2020-01-07] MEDS: NEOMY SULF/BACITRAC ZN/POLY 15 GM TUBE TP SCH (08:58)
[2020-01-07] MEDS: ENOXAPARIN SODIUM 40 MG/0.4 ML DISP.SYRIN SQ SCH (08:58)
[2020-01-07] MEDS: Z GUARD REMEDY 2 OZ OINT TP SCH ×2 (08:59→21:14)
[2020-01-07] MEDS: MULTIPLE VIT (LYCOPENE/FA/MV,CA,IRON,MIN/LUT)1 TAB PO SCH (09:12)
[2020-01-07] MEDS: Magnesium 1GM/D5W 100ML PREMIX 100 ML IV SCH ×4 (09:42→12:59)
[2020-01-07 16:00] VITALS: BP 146/81
--- NOTE | 2020-01-07 19:05 | NUR ---
M/S RN NOTES PATIENT AWAKE IN BED, NO RESPIRATORY DISTRESS, NO C/O PAIN AT THIS TIME. SKIN WARM TO TOUCH, IV ACCESS SITE INTACT AND PATENT. DRESSING INTACT AND DRY ON THE LEFT HIP, WILL BE CHANGED TOMORROW PER FAY MORRIS. PATIENT'S NEEDS ATTENDED, BED ON LOWEST LOCKED POSITION, CALL LIGHT WITHIN REACH. WILL ENDORSE TO ONCOMING NURSE.
--- NOTE | 2020-01-07 19:50 | NUR ---
MS RN OPENING NOTES RECEIVED PATIENT RESTING IN BED COMFORTABLY; NO SOB NOTED; BREATHING EVEN AND UNLABORED; PATIENT TOLERATING ROOM AIR WELL; A/OX3; PATIENT REQUESTED PAIN MEDICATION; VITALS STABLE: BP: 147/79 P: 94 RR: 20 SO2: 95%; ADMINISTERED MORPHINE IVP PER MD ORDER; WILL CONT TO MONITOR PAIN; ROBERT MIDLINE #18 INTACT AND PATENT; FLUSHING WELL; NO S/S OF REDNESS OR INFILTRATION; SAFETY PRECAUTIONS IMPLEMENTED; BED LOCKED IN LOW POSITION; SIDE RAILS X2; CALL LIGHT WITHIN REACH; WILL CONT PLAN OF CARE AND CONT TO MONITOR
[2020-01-07 20:00] VITALS: BP 147/79
[2020-01-07 20:14] VITALS: BP 147/79
[2020-01-07] MEDS: ZOLPIDEM TARTRATE 5 MG TABLET PO PRN (21:52)
--- NOTE | 2020-01-08 01:08 | NUR ---
MS RN NOTES PER CAN TENDER, PATIENT REPORTED HE WOULD JUST LIKE TO SLEEP AND DOES NOT WANT TO BE CHANGED/BOTHERED AT THIS TIME; WILL CONT TO MONITOR
--- NOTE | 2020-01-08 06:48 | NUR ---
MS RN CLOSING NOTES PATIENT RESTING IN BED COMFORTABLY; A/OX3-4; BREATHING EVEN AND UNLABORED; NO SOB NOTED; PATIENT TOLERATING ROOM AIR WELL; ROBERT MIDLINE #18 SL INTACT AND PATENT; FLUSHING WELL; NO S/S OF REDNESS OR INFILTRATION NOTED; ALL NEEDS RENDERED; ABLE TO MAKE NEEDS KNOWN; SAFETY PRECAUTIONS IMPLEMENTED; BED LOCKED IN LOW POSITION; SIDE RAILS X2; CALL LIGHT WITHIN REACH; WILL ENDORSE VANDANA TO ONCOMING SHIFT
[2020-01-08 08:00] VITALS: BP 136/85
[2020-01-08 08:00] LABS: BASOPHILS # (AUTO) 0.1 /CMM (0.0-0.2); EOSINOPHILS % (AUTO) 1.3 % (0.0-6.0); HEMATOCRIT 42 % (39-51); HEMOGLOBIN 13.1 g/dL (13.5-17.5); LYMPHOCYTES # (AUTO) 1.6 /CMM (0.8-4.8); LYMPHOCYTES % (AUTO) 16.2 % (20.0-44.0); MEAN CORPUSCULAR HGB CONC 31 g/dl (31.0-36.0); MEAN CORPUSCULAR VOLUME 105 fL (80-96); MONOCYTES # (AUTO) 1.2 /CMM (0.1-1.30); NEUTROPHILS # (AUTO) 6.7 /CMM (1.8-8.9); NEUTROPHILS % (AUTO) 69.5 % (43.0-81.0); PLATELET COUNT (AUTO) 465 /CMM (150-450); RED BLOOD CELL COUNT(AUTO) 4.04 MIL/uL (4.5-6.0); WHITE BLOOD COUNT (AUTO) 9.7 K/uL (4.3-11.0)
[2020-01-08] MEDS: THIAMINE HCL 100 MG TABLET PO SCH (08:15)
[2020-01-08] MEDS: PHENYTOIN EXTENDED RELEASE 100 MG CAPSULE PO SCH (08:15)
[2020-01-08] MEDS: LEVETIRACETAM (250 MG) 250 MG TABLET PO SCH (08:15)
[2020-01-08] MEDS: MULTIVIT W/MINERALS 1 TAB TABLET PO SCH (08:15)
[2020-01-08] MEDS: MULTIPLE VIT (LYCOPENE/FA/MV,CA,IRON,MIN/LUT)1 TAB PO SCH (08:15)
[2020-01-08] MEDS: ENOXAPARIN SODIUM 40 MG/0.4 ML DISP.SYRIN SQ SCH (08:16)
[2020-01-08 08:19] LABS: CALCIUM, SERUM 8.9 mg/dL (8.5-10.1); CREATININE 0.6 mg/dL (0.6-1.3); POTASSIUM 3.8 mmol/L (3.5-5.1)
[2020-01-08] MEDS: NEOMY SULF/BACITRAC ZN/POLY 15 GM TUBE TP SCH (08:42)
[2020-01-08] MEDS: Z GUARD REMEDY 2 OZ OINT TP SCH (08:43)
[2020-01-08] MEDS: HYDROCODONE/APAP 5/325MG 1 EACH TABLET PO PRN (08:45)
--- NOTE | 2020-01-08 09:18 | NUR ---
Patient resting comfortably in bed. A&O x3, VS stable, afebrile. No SOB/respiratory distress noted, breathing is even and unlabored, tolerating RA well. Patient requests for pain medication, as pain level stated is at 4-7. Administered pain medication as ordered. Will continue to monitor pain and implement pain control measures. ROBERT midline 18 is intact and patent. Fall precautions maintained. Will continue with current medical management.
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
[2020-01-08] MEDS ORDERED: ENOX40DI SQ (15:19)
[2020-01-08] MEDS ORDERED: HYDR-4384 PO (15:21)
--- NOTE | 2020-01-08 15:25 | NUR ---
TRI received a call from the pt stating he spoke to Carlos at [facility] and wants SW to fax information to them for detox. TRI got SPARKLE signed by the pt and sent clinicals to Alla at .
[2020-01-08 16:00] VITALS: BP 119/69
[2020-01-08 18:08] VITALS: BP 136/85
--- NOTE | 2020-01-08 19:05 | NUR ---
MS/RN - Discharge process Patient is A/O x 3, calm and cooperative with care, [facility]. Reviewed discharge instructions with Lesa [phone] and she verbalized full understanding and all questions answered to her satisfaction. Reminded Lesa that if she has any other questions regarding patient's plan of care, that she could call our unit or refer to the discharge papers sent with the patient. All belongings with patient. VSS, no c/o pain, afebrile, no apparent distress. Patient refused discharge photo. ROBERT midline #18 saline lock removed with catheter tip intact, no swelling or redness on and around the site. Will endorse to bumper straightener for completion of discharge. Per case coordinator, Ila pick up attendant around 1900 (trip#[id number]).
--- NOTE | 2020-01-08 20:00 | NUR ---
MS/ROUND KILN DRAWER NOTES: Patient is A/O x 3, calm. Being discharged to [facility] ([facility]) all reports given to Lesa [phone] by day shift RN Nancy. All belongings with patient. VSS, BP: 130/82 hr:91. RR:18. Temp:99.4. No c/o pain, afebrile, no apparent distress. Patient refused discharge photo. No IV site noted. Ila arrived at 1940 to chicken picker patient (trip#[id number]). Report given to Reta (FIRE ALARM INSPECTOR) Patient left the unit at 1954 in stable condition.
== END 2020-01-08 19:55 | DRG 308 ==
LOC: ER 10:38 → MED 14:27
PROVIDERS: ADMIT Family Medicine; ATTEND Hospitalist
PROC: 0QS706Z Reposition Left Upper Femur with Intramedullary Internal Fixation Device, Open Approach (ICD-10-PCS; principal; 2020-01-03)
PROC: 05HY33Z Insertion of Infusion Device into Upper Vein, Percutaneous Approach (ICD-10-PCS; 2020-01-04)
DX: S72.142A Displaced intertrochanteric fracture of left femur, initial encounter for closed fracture (principal); E83.42 Hypomagnesemia; S72.22XA Displaced subtrochanteric fracture of left femur, initial encounter for closed fracture; E87.1 Hypo-osmolality and hyponatremia; I10 Essential (primary) hypertension; W19.XXXA Unspecified fall, initial encounter; Y92.9 Unspecified place or not applicable; D72.829 Elevated white blood cell count, unspecified; G40.909 Epilepsy, unspecified, not intractable, without status epilepticus; F19.10 Other psychoactive substance abuse, uncomplicated; Y90.9 Presence of alcohol in blood, level not specified; E86.1 Hypovolemia; R73.9 Hyperglycemia, unspecified; E87.6 Hypokalemia; F10.20 Alcohol dependence, uncomplicated; Z72.0 Tobacco use; Z59.0 Homelessness
CPT/HCPCS: 36415; 70450-TC; 71045-TC; 72170-TC; 73030-TC; 73502; 73700-TC; 80048-TC; 80061-TC; 80185-TC; 82728-TC; 83540-TC; 83735-TC; 84100-TC; 84132-TC; 84439-TC; 84443-TC; 85025-TC; 85730-TC; 86850-TC; 87081-TC; 93307-TC; 97116-TC; 97530-TC; A4349; A6209; A6253; C1713; G0378; J0690; J1100; J1165; J1170; J1650; J1885; J2250; J2270; J2405; J2704; J3475; J3480; J3490; J7030; J7050; J7060; J7120; U0003-CS